=== PATIENT | male | born 1965 | race Caucasian/White ===

== ENCOUNTER 2018-03-12 14:25 | Inpatient (IN) | payer BC, OTHER ==
[~2018-03-12] VITALS: Ht 175.3 cm; Wt 87.0 kg
[2018-03-12] MEDS ORDERED: SODIUM CHLORIDE 0.9% 1000ML 1,000 ML IV STA (14:39)
[2018-03-12] MEDS ORDERED: MoRPHine SULFATE 4 MG/ML 1 ML CARP\\VIAL IV STA (14:42)
[2018-03-12] MEDS ORDERED: ONDANSETRON INJ 2 MG/ML 2 ML VIAL IV STA (14:42)
--- NOTE | 2018-03-12 15:06 | EMERGENCY ROOM VISIT NOTE ---
History First contact with patient: 14:33 Chief Complaint: CONSTIPATION Stated Complaint: CONSTIPATED, VOMITING, EXTREME PAIN History of Present Illness The patient is a 52 year old male who presents to the Emergency Room via private vehicle accompanied by with complaints of "constipated, vomiting, extreme pain". The patient states that he has not had a bowel movement in at least 8 days. This past Monday and Monday he went to [facility] emergency department where he notes that he had a CT scan of the abdomen and pelvis as well as 3 enemas. He is also been trying MiraLAX without relief. He has never had this before. He now notes abdominal distention, and his vomiting began Monday. His overall pain is a 10/10. He now has hiccups. He cannot tolerate anything p.o. since Monday. He denies any underlying medical problems , diabetes. Review of Systems A complete 10-point Review of Systems was discussed with the patient, with pertinent positives and negatives listed in the History of Present Illness. All remaining Review of Systems questions can be considered negative unless otherwise specified. Past Medical/Surgical History No pertinent Family History No pertinent Social History Smoking Status: Never Smoker Patient lives locally. Current/Historical Medications Scheduled Methotrexate (Methotrexate), 15 MG PO WK Physical Exam Vital Signs Date Time Temp Pulse Resp B/P (MAP) Pulse Ox O2 Delivery O2 Flow Rate FiO2 03/12/18 17:13 86 03/12/18 16:32 91 19 127/93 98 Room Air 03/12/18 15:00 94 24 135/99 94 Room Air 03/12/18 14:59 Room Air 03/12/18 14:44 87 03/12/18 14:29 36.5 120 18 145/95 96 Room Air Physical Exam VITAL SIGNS - Vital signs and nursing notes were reviewed. Stable. Tachycardic at 120 bpm. GENERAL -52-year-old male appearing his stated age who is in no acute distress but does appear to be in pain. Communicates well with provider and answers questions appropriately. SKIN - Without rashes. HEAD - NC/AT. EYES - PERRL with EOMI bilaterally. Sclera anicteric. EARS - No deformities of external structures noted on gross examination bilaterally. NOSE - Midline and without cyanosis. No epistaxis or purulent drainage noted. MOUTH/OROPHARYNX - Without perioral cyanosis. NECK - Neck with FROM. Supple to palpation. LUNGS - Chest wall symmetric without accessory muscle use, intercostals retractions, or central cyanosis. Normal vesicular breath sounds CTA B/L. No wheezes, rales, or rhonchi appreciated. CARDIAC - RRR with S1/S2. No murmur, rubs, or gallops appreciated. ABDOMEN - Abdominal contour enlarged/distended without pulsations or visible masses. BS diminished all four quadrants.Diffuse tenderness noted. EXTREMITIES - No clubbing or peripheral cyanosis. No pretibial edema present. + 5/5 strength noted in UE/LE bilaterally. NEUROLOGIC - Cranial nerves II through XII grossly intact. Sensory intact to light touch throughout. PSYCH - A&Ox3 and cooperates fully with examiner. Pt is very pleasant but does appear to be in pain and interacts well with examiner. RECTAL: unremarkable. No stool. Medical Decision & Procedures ER Provider Diagnostic Interpretation: ABDOMEN 2VIEW W/PA CHEST RTN CLINICAL HISTORY: 8 days of no BM, solid abdomen, emesis, hiccups COMPARISON STUDY: No previous studies for comparison. FINDINGS: The erect chest reveals low lung volumes and hypoventilatory changes the lung bases. Erect and supine views the abdomen reveal gaseous distention of the colon. The cecum measures 15 cm in diameter. There are colonic air-fluid levels. There is a paucity of gas within the rectosigmoid. The findings are suspicious for a left colonic obstruction. IMPRESSION: 1. Dilated colon with multiple air-fluid levels. Paucity of gas within the distal descending colon, rectum and sigmoid. 2. The findings are viewed as suspicious for a left colonic obstruction. Electronically signed by: German Michael M.D. 03/12/2018 4:00 PM A[address]OMEN AND PELVIS CT WITH IV CONTRAST CT DOSE: 484.13 mGy.cm HISTORY: Generalized abdominal pain. Distention. TECHNIQUE: Multiaxial CT images of the abdomen and pelvis were performed following the use of intravenous contrast. A dose lowering technique was utilized adhering to the principles of ALARA. COMPARISON STUDY: None. FINDINGS: Bibasilar densities favor subsegmental atelectasis. No pneumoperitoneum. No suspicious lytic or blastic osseous lesions. Old, healed left-sided rib fractures. No hepatic or splenic lesions. Small amount of ascites. The pancreas and adrenal glands are unremarkable. A 9 mm indeterminate exophytic hypodense lesion within the left kidney. No hydronephrosis. The bladder is unremarkable. Focal transition point at the rectosigmoid junction best seen on image 418. This measures 3 cm in length and is highly suspicious for a colonic mass. There are few mildly enlarged pericolonic lymph nodes which measure up to 1 cm. These are concerning for metastatic disease. The large and small bowel proximal to this area of stricture are distended and fluid-filled consistent with a large bowel obstruction. There is pericolonic fluid most pronounced within the right side of the colon. The cecum is distended up to 12 cm. Normal appendix. Multiple small bubbles of gas adjacent to the posterior wall of the cecum and ascending colon. This favors trapped gas. Pneumatosis could also have a similar appearance but is considered less likely. Questionable mild thickening versus under distention within the distal descending colon. Small fat-containing umbilical hernia. Questionable nodularity within the right omentum on image 196. This may be due to the edema rather than soft tissue nodularity. IMPRESSION: 1. A 3 cm focal area of bowel wall thickening at the rectosigmoid junction which is highly suspicious for a colonic mass. This results in the large bowel obstruction. There are few mildly enlarged pericolonic lymph nodes concerning for metastatic disease. 2. Multiple small bubbles of gas adjacent to the posterior wall of the cecum and ascending colon. This favors trapped gas. Pneumatosis could also have a similar appearance but is considered less likely. Clinical correlation recommended. 3. Questionable nodularity within the right omentum on image 196. This may be due to the edema from the large bowel obstruction rather than soft tissue nodularity. However, in conjunction with the small amount of ascites, the possibility of peritoneal carcinomatosis cannot be excluded. This requires follow-up to ensure resolution. 4. Additional findings as described above. 5. These findings were discussed with Dr. Blue Jauregui at 5:10 PM on 03/12/2018. Electronically signed by: Tavo Haile M.D. 03/12/2018 5:14 PM Dictated Date/Time: 03/12/2018 5:01 PM Laboratory Results 03/12/18 14:57 Red Blood Count 4.75, Mean Corpuscular Volume 90.7, Mean Corpuscular Hemoglobin 32.2, Mean Corpuscular Hemoglobin Concent 35.5, Mean Platelet Volume 9.3, Neutrophils (%) (Auto) 74.2, Lymphocytes (%) (Auto) 7.4, Monocytes (%) (Auto) 18.1, Eosinophils (%) (Auto) 0.0, Basophils (%) (Auto) 0.0, Neutrophils # (Auto ) 5.48, Lymphocytes # (Auto) 0.55, Monocytes # (Auto) 1.34, Eosinophils # (Auto ) 0.00, Basophils # (Auto) 0.00 03/12/18 14:57 Test 03/12/18 00:00 03/12/18 14:57 Urine Color DK YELLOW Urine Appearance CLEAR (CLEAR) Urine pH 5.5 (4.5-7.5) Urine Specific [place] 1.039 (1.000-1.030) Urine Protein 1+ (NEG) Urine Glucose (UA) NEG (NEG) Urine Ketones TRACE (NEG) Urine Occult Blood NEG (NEG) Urine Nitrite POS (NEG) Urine Bilirubin NEG (NEG) Urine Urobilinogen NEG (NEG) Urine Leukocyte Esterase NEG (NEG) Urine WBC (Auto) 1-5 /hpf (0-5) Urine RBC (Auto) 0-4 /hpf (0-4) Urine Hyaline Casts (Auto) 1-5 /lpf (0-5) Urine Epithelial Cells (Auto) 10-20 /lpf (0-5) Urine Bacteria (Auto) NEG (NEG) White Blood Count 7.39 K/uL (4.8-10.8) Red Blood Count 4.75 M/uL (4.7-6.1) Hemoglobin 15.3 g/dL (14.0-18.0) Hematocrit 43.1 % (42-52) Mean Corpuscular Volume 90.7 fL (80-100) Mean Corpuscular Hemoglobin 32.2 pg (25-34) Mean Corpuscular Hemoglobin Concent 35.5 g/dl (32-36) Platelet Count 280 K/uL (130-400) Mean Platelet Volume 9.3 fL (7.4-10.4) Neutrophils (%) (Auto) 74.2 % Lymphocytes (%) (Auto) 7.4 % Monocytes (%) (Auto) 18.1 % Eosinophils (%) (Auto) 0.0 % Basophils (%) (Auto) 0.0 % Neutrophils # (Auto) 5.48 K/uL (1.4-6.5) Lymphocytes # (Auto) 0.55 K/uL (1.2-3.4) Monocytes # (Auto) 1.34 K/uL (0.11-0.59) Eosinophils # (Auto) 0.00 K/uL (0-0.5) Basophils # (Auto) 0.00 K/uL (0-0.2) RDW Standard Deviation 44.4 fL (36.4-46.3) RDW Coefficient of Variation 13.5 % (11.5-14.5) Immature Granulocyte % (Auto) 0.3 % Immature Granulocyte # (Auto) 0.02 K/uL (0.00-0.02) Prothrombin Time 10.3 SECONDS (9.0-12.0) Prothromb Time International Ratio 1.0 (0.9-1.1) Activated Partial Thromboplast Time 23.4 SECONDS (21.0-31.0) Partial Thromboplastin Ratio 0.9 Anion Gap 6.0 mmol/L (3-11) Est Creatinine Clear Calc Drug Dose 108.0 ml/min Estimated GFR () 114.7 Estimated GFR (Non- 99.0 BUN/Creatinine Ratio 21.6 (10-20) Calcium Level 8.8 mg/dl (8.5-10.1) Magnesium Level 2.2 mg/dl (1.8-2.4) Total Bilirubin 0.6 mg/dl (0.2-1) Aspartate Amino Transf (AST/SGOT) 21 U/L (15-37) Alanine Aminotransferase (ALT/SGPT) 29 U/L (12-78) Alkaline Phosphatase 107 U/L (45-117) Total Protein 7.3 gm/dl (6.4-8.2) Albumin 3.6 gm/dl (3.4-5.0) Globulin 3.7 gm/dl (2.5-4.0) Albumin/Globulin Ratio 1.0 (0.9-2) Medications Administered Medications (Trade) Dose Ordered Sig/Bryant Route Start Time Stop Time Status Last Admin Dose Admin Sodium Chloride 1,000 ml @ 999 mls/hr Q1H1M STAT IV 03/12/18 14:39 03/12/18 15:39 DC 03/12/18 14:57 999 MLS/HR Morphine Sulfate (MoRPHine SULFATE INJ) 4 mg NOW STAT IV 03/12/18 14:42 4/23/18 14:43 DC 03/12/18 14:58 4 MG Ondansetron HCl (Zofran Inj) 4 mg NOW STAT IV 03/12/18 14:42 03/12/18 14:43 DC 03/12/18 14:58 4 MG Medical Decision Patient was seen and evaluated as above in room C01. Review was performed of nursing notes and vital signs. After obtaining a thorough history and physical examination the above work up was performed. CT scan of ABD/Pelvis was reviewed from [facility], performed on 03/10 at 0554. This revealed "Very large amount of retained colonic and rectal stool. No associated bowel obstruction. Findings likely represent the source of patient's symptoms". He noted he underwent three enemas yesterday without bowel movement and has not been eating since Monday secondary to the emesis. He has tried Miralax but vomits. He has numerous hiccups. CBC reveals no concerning leukocytosis or anemia. No concerning metabolic abnormality. Chest and abdominal series x-rays were performed. Concerning for bowel obstruction. Rectal exam there was no stool. No evidence of fecal impaction. He was given morphine and Zofran. He was given fluids. I did discuss this with on-call general surgery, Dr. Jauregui. Recommendation was to obtain a CT scan of the patient's abdomen and pelvis with IV contrast. Oral contrast would be ideal however the patient notes that he will not be able to tolerate this as he has not been able tolerate anything p.o. since Monday. This revealed unfortunately concern for colonic mass. This was discussed with the patient. He will be admitted by the surgery team with consult placed to GI as well. Please refer to for the documentation regarding his stay. CBC reveals no concerning leukocytosis or anemia. Urine does reveal nitrites. Case was discussed with the attending physician. I attest that I have personally reviewed the patient medication list. I attest that I have reviewed the patient's blood pressure and it was found to be elevated likely secondary to prevention. In the evaluation and treatment of this patient the following differential diagnoses were entertained: bowel obstruction, diverticulitis, fecal impaction, among others. Impression Primary Impression: Bowel obstruction Additional Impression: Hypokalemia Departure Information Dispostion Admitted as an inpatient Condition FAIR Referrals Von Abbott M.D. (PCP) Patient Instructions My [facility] Problem Qualifiers
[2018-03-12 15:08] LABS: HEMATOCRIT 43.1 % (42-52); HEMOGLOBIN 15.3 g/dL (14.0-18.0); IG# 0.02 K/uL (0.00-0.02); LYMPH % 7.4 %; LYMPH ABS # 0.55 K/uL (1.2-3.4); MEAN CELL VOLUME 90.7 fL (80-100); MEAN CORPUSCULAR HEMOGLOBIN 32.2 pg (25-34); MEAN CORPUSCULAR HGB CONC 35.5 g/dl (32-36); MEAN PLATELET VOLUME 9.3 fL (7.4-10.4); MONO % 18.1 %; MONO ABS # 1.34 K/uL (0.11-0.59); NEUT % 74.2 %; NEUT ABS # 5.48 K/uL (1.4-6.5); PLATELET COUNT 280 K/uL (130-400); RED CELL DISTRIBUTION WIDTH CV 13.5 % (11.5-14.5); RED CELL DISTRIBUTION WIDTH SD 44.4 fL (36.4-46.3); WHITE BLOOD COUNT 7.39 K/uL (4.8-10.8)
[2018-03-12] MEDS ORDERED: METH2.5T PO (15:12)
[2018-03-12 15:17] LABS: PTT PATIENT 23.4 SECONDS (21.0-31.0)
[2018-03-12 15:35] LABS: CREATININE 0.86 mg/dl (0.60-1.40)
[2018-03-12 15:36] LABS: ALBUMIN 3.6 gm/dl (3.4-5.0); CALCIUM 8.8 mg/dl (8.5-10.1); POTASSIUM 3.2 mmol/L (3.5-5.1)
[2018-03-12 15:38] LABS: TOTAL PROTEIN 7.3 gm/dl (6.4-8.2)
--- NOTE | 2018-03-12 16:01 | DIAGNOSTIC IMAGING REPORT ---
ABDOMEN 2VIEW W/PA CHEST RTN CLINICAL HISTORY: 8 days of no BM, solid abdomen, emesis, hiccups COMPARISON STUDY: No previous studies for comparison. FINDINGS: The erect chest reveals low lung volumes and hypoventilatory changes the lung bases. Erect and supine views the abdomen reveal gaseous distention of the colon. The cecum measures 15 cm in diameter. There are colonic air-fluid levels. There is a paucity of gas within the rectosigmoid. The findings are suspicious for a left colonic obstruction. IMPRESSION: 1. Dilated colon with multiple air-fluid levels. Paucity of gas within the distal descending colon, rectum and sigmoid. 2. The findings are viewed as suspicious for a left colonic obstruction. Electronically signed by: German Michael M.D. 03/12/2018 4:00 PM Dictated Date/Time: 03/12/2018 3:57 PM
[2018-03-12] MEDS ORDERED: OPTIRAY 320 IV PRN (16:45)
--- NOTE | 2018-03-12 16:48 | EMERGENCY ROOM VISIT NOTE ---
ED Visit Note First contact with patient: 14:33 I did evaluate and examine this patient myself. I did guide management for the patient. I agree with the PA's assessment as discussed. Please see the PAs dictation for further details. I did independently review the x-rays and blood work. The patient has what appears to be a large bowel obstruction. He has a tympanitic, hard and distended abdomen. Surgery was consulted.
--- NOTE | 2018-03-12 17:15 | DIAGNOSTIC IMAGING REPORT ---
ABDOMEN AND PELVIS CT WITH IV CONTRAST CT DOSE: 484.13 mGy.cm HISTORY: Generalized abdominal pain. Distention. TECHNIQUE: Multiaxial CT images of the abdomen and pelvis were performed following the use of intravenous contrast. A dose lowering technique was utilized adhering to the principles of ALARA. COMPARISON STUDY: None. FINDINGS: Bibasilar densities favor subsegmental atelectasis. No pneumoperitoneum. No suspicious lytic or blastic osseous lesions. Old, healed left-sided rib fractures. No hepatic or splenic lesions. Small amount of ascites. The pancreas and adrenal glands are unremarkable. A 9 mm indeterminate exophytic hypodense lesion within the left kidney. No hydronephrosis. The bladder is unremarkable. Focal transition point at the rectosigmoid junction best seen on image 418. This measures 3 cm in length and is highly suspicious for a colonic mass. There are few mildly enlarged pericolonic lymph nodes which measure up to 1 cm. These are concerning for metastatic disease. The large and small bowel proximal to this area of stricture are distended and fluid-filled consistent with a large bowel obstruction. There is pericolonic fluid most pronounced within the right side of the colon. The cecum is distended up to 12 cm. Normal appendix. Multiple small bubbles of gas adjacent to the posterior wall of the cecum and ascending colon. This favors trapped gas. Pneumatosis could also have a similar appearance but is considered less likely. Questionable mild thickening versus under distention within the distal descending colon. Small fat-containing umbilical hernia. Questionable nodularity within the right omentum on image 196. This may be due to the edema rather than soft tissue nodularity. IMPRESSION: 1. A 3 cm focal area of bowel wall thickening at the rectosigmoid junction which is highly suspicious for a colonic mass. This results in the large bowel obstruction. There are few mildly enlarged pericolonic lymph nodes concerning for metastatic disease. 2. Multiple small bubbles of gas adjacent to the posterior wall of the cecum and ascending colon. This favors trapped gas. Pneumatosis could also have a similar appearance but is considered less likely. Clinical correlation recommended. 3. Questionable nodularity within the right omentum on image 196. This may be due to the edema from the large bowel obstruction rather than soft tissue nodularity. However, in conjunction with the small amount of ascites, the possibility of peritoneal carcinomatosis cannot be excluded. This requires follow-up to ensure resolution. 4. Additional findings as described above. 5. These findings were discussed with Dr. Blue Jauregui at 5:10 PM on 03/12/2018. Electronically signed by: Tavo Haile M.D. 03/12/2018 5:14 PM Dictated Date/Time: 03/12/2018 5:01 PM
--- NOTE | 2018-03-12 17:29 | Gastrointestinal Consultation ---
Gastrointestinal Consultation Date of Consultation: Mar 12, 2018 Attending Physician: Blue Jauregui Consulting Physician: Perez Dang Reason for Consultation: Colonic distension ? obstruction History of Present Illness Patient is a 52 year old male who presented to ED w c/o n/v, abd pain, constipation. Went to [facility] ED 03/10 w similar complaints. Had CT abd/pelvis w showed colon fecal retention and advised to take Miralax and also given multiple enemas w/o BM. He hasn't had a BM x 8 days now and noticed abd getting more distended and not able to pass flatus. He is having hiccups now. Abd xray in ED consistent w L sided colonic obstruction w cecum of 15cm. CT abd/pelvis obtained, final read pending. His labs showed normal CBC, coags, CMP except K 3.2. Surgery team already consulted. Pt denies any hx of chronic constipation, IBD or cancers. He never had any hx of colonoscopy for colon ca screening either. Past Medical/Surgical History Past Medical History: Rheumatoid arthritis Past Surgical History: R knee cartilage removal Social History Smoking Status: Never Smoker Alcohol Use: occasionally Drug Use: none Marital Status: Housing Status: lives with family Allergies Coded Allergies: No Known Allergies (Unverified , 03/12/18) Current Medications Home Meds and Scripts Medications Dose Route/Sig Max Daily Dose Days Date Category Methotrexate 2.5 Mg Tab 15 Mg PO WK 03/12/18 Reported Review of Systems Constitutional: No fever, No chills Respiratory: No cough, No shortness of breath Cardiac: No chest pain Abdomen: + see HPI, + pain, + nausea, + vomiting, + constipation, No GI bleeding Physical Exam Date Time Temp Pulse Resp B/P (MAP) Pulse Ox O2 Delivery O2 Flow Rate FiO2 03/12/18 16:32 91 19 127/93 98 Room Air 03/12/18 15:00 94 24 135/99 94 Room Air 03/12/18 14:59 Room Air 03/12/18 14:44 87 03/12/18 14:29 36.5 120 18 145/95 96 Room Air General Appearance: + mild distress Eyes: normal inspection, PERRL, EOMI Neck: supple, no JVD Respiratory/Chest: normal breath sounds, no respiratory distress, no accessory muscle use Cardiovascular: regular rate, rhythm, no gallop, no murmur Abdomen: + abnormal bowel sounds (tympanic on percussion), + distended, + tenderness Extremities: normal inspection, no pedal edema, no calf tenderness Neurologic/Psych: alert, normal mood/affect, oriented x 3 Skin: normal color, no jaundice, no rash Laboratory Results Last 24 Hours Test 03/12/18 00:00 03/12/18 14:57 Urine Color DK YELLOW Urine Appearance CLEAR Urine pH 5.5 Urine Specific [place] 1.039 Urine Protein 1+ Urine Glucose (UA) NEG Urine Ketones TRACE Urine Occult Blood NEG Urine Nitrite POS Urine Bilirubin NEG Urine Urobilinogen NEG Urine Leukocyte Esterase NEG Urine WBC (Auto) 1-5 /hpf Urine RBC (Auto) 0-4 /hpf Urine Hyaline Casts (Auto) 1-5 /lpf Urine Epithelial Cells (Auto) 10-20 /lpf Urine Bacteria (Auto) NEG White Blood Count 7.39 K/uL Red Blood Count 4.75 M/uL Hemoglobin 15.3 g/dL Hematocrit 43.1 % Mean Corpuscular Volume 90.7 fL Mean Corpuscular Hemoglobin 32.2 pg Mean Corpuscular Hemoglobin Concent 35.5 g/dl Platelet Count 280 K/uL Mean Platelet Volume 9.3 fL Neutrophils (%) (Auto) 74.2 % Lymphocytes (%) (Auto) 7.4 % Monocytes (%) (Auto) 18.1 % Eosinophils (%) (Auto) 0.0 % Basophils (%) (Auto) 0.0 % Neutrophils # (Auto) 5.48 K/uL Lymphocytes # (Auto) 0.55 K/uL Monocytes # (Auto) 1.34 K/uL Eosinophils # (Auto) 0.00 K/uL Basophils # (Auto) 0.00 K/uL RDW Standard Deviation 44.4 fL RDW Coefficient of Variation 13.5 % Immature Granulocyte % (Auto) 0.3 % Immature Granulocyte # (Auto) 0.02 K/uL Prothrombin Time 10.3 SECONDS Prothromb Time International Ratio 1.0 Activated Partial Thromboplast Time 23.4 SECONDS Partial Thromboplastin Ratio 0.9 Sodium Level 135 mmol/L Potassium Level 3.2 mmol/L Chloride Level 102 mmol/L Carbon Dioxide Level 27 mmol/L Anion Gap 6.0 mmol/L Blood Urea Nitrogen 18 mg/dl Creatinine 0.86 mg/dl Est Creatinine Clear Calc Drug Dose 108.0 ml/min Estimated GFR () 114.7 Estimated GFR (Non- 99.0 BUN/Creatinine Ratio 21.6 Random Glucose 145 mg/dl Calcium Level 8.8 mg/dl Magnesium Level 2.2 mg/dl Total Bilirubin 0.6 mg/dl Aspartate Amino Transf (AST/SGOT) 21 U/L Alanine Aminotransferase (ALT/SGPT) 29 U/L Alkaline Phosphatase 107 U/L Total Protein 7.3 gm/dl Albumin 3.6 gm/dl Globulin 3.7 gm/dl Albumin/Globulin Ratio 1.0 Impression Patient is a 52 year old male who presented w abd distension, pain, n/v, no BM x 8 days. Imaging studies consistent w colonic distension w L sided obstruction. Final read of CT scan pending. Plan - Surgery following, appreciate recs - Keep NPO for possible colonic decompression by Dr. Dang today - NGT to LIS. - Further recs after evaluation by Dr. Dang - Correct K Addendum CT scan results: Bibasilar densities favor subsegmental atelectasis. No pneumoperitoneum. No suspicious lytic or blastic osseous lesions. Old, healed left-sided rib fractures. No hepatic or splenic lesions. Small amount of ascites. The pancreas and adrenal glands are unremarkable. A 9 mm indeterminate exophytic hypodense lesion within the left kidney. No hydronephrosis. The bladder is unremarkable. Focal transition point at the rectosigmoid junction best seen on image 418. This measures 3 cm in length and is highly suspicious for a colonic mass. There are few mildly enlarged pericolonic lymph nodes which measure up to 1 cm. These are concerning for metastatic disease. The large and small bowel proximal to this area of stricture are distended and fluid-filled consistent with a large bowel obstruction. There is pericolonic fluid most pronounced within the right side of the colon. The cecum is distended up to 12 cm. Normal appendix. Multiple small bubbles of gas adjacent to the posterior wall of the cecum and ascending colon. This favors trapped gas. Pneumatosis could also have a similar appearance but is considered less likely. Questionable mild thickening versus under distention within the distal descending colon. Small fat-containing umbilical hernia. Questionable nodularity within the right omentum on image 196. This may be due to the edema rather than soft tissue nodularity. Attg add: I interviewed and examined pt, reviewed chart and labs. Pt with no sig PMH admit with 8 d h/o constipation, abd distention. No prior h/o constipation. On exam, he is mildly uncomfortable. Abd is distended, but without focal tenderness. Oral mucosa mildly dry. CT shows rectosigmoid narrowing; there is marked cecal distention, a small amt of pericolonic fluid on the right side. Large bowel obstruction - He has no focal tenderness or leukocytosis; however, I am concerned about the marked dilation of the cecum, as well as the pericolonic fluid. Will attempt decompression tonite.
[2018-03-12] MEDS ORDERED: ONDANSETRON INJ 2 MG/ML 2 ML VIAL IV PRN ×2 (19:00→20:45)
[2018-03-12] MEDS ORDERED: MoRPHine SULFATE 4 MG/ML 1 ML CARP\\VIAL IV PRN (19:00)
--- NOTE | 2018-03-12 19:08 | History and Physical ---
History & Physical Date & Time of Service: Mar 12, 2018 at 18:59 Chief Complaint: Constipated, Vomiting, Extreme Pain Primary Care Physician: Von Abbott M.D. History of Present Illness Source: patient, family This is a 52-year-old male who presented to the emergency room with a complaint of not having had a bowel movement for about 8 days. He had some lower abdominal discomfort that began about 2 days ago. He had some nausea and vomiting over that same period of time but no hematemesis. The vomiting was mostly for dry heaves and that he was not able to keep anything but small bits of water down. He has never had an issue like this before. Prior to 8 days ago his bowels are moving regularly with formed stool. There is no decrease in the caliber. He denied melena and hematochezia. He has never had a colonoscopy. There is no family history of colon cancer. He has not had any weight loss. He underwent a CT scan 2 days ago that was felt to demonstrate a large amount of formed stool in the rectum and distal sigmoid colon. He underwent enemas for evacuation but that still did not result in passing flatus or a bowel movement. He underwent a CT scan today that demonstrated a narrowing near the rectosigmoid junction beginning at the sacral prominence and extending down through the sacral hollow. There were some enlarged lymph nodes as well. Past Medical/Surgical History PMH: Rheumatoid arthritis PSH: Knee arthroscopy Social History Smoking Status: Never Smoker Smokeless Tobacco Use: No Alcohol Use: Occasional Drug Use: none Marital Status: Allergies Coded Allergies: No Known Allergies (Unverified , 03/12/18) Home Medications Scheduled Methotrexate (Methotrexate), 15 MG PO WK Review of Systems Constitutional: No fever, No chills Respiratory: No cough, No sputum Cardiovascular: No chest pain Abdomen: + problem reported (as per HPI) Genitourinary - Male: No hematuria, No dysuria Endocrine: No fatigue Integumentary: No rash Physical Exam Vital Signs Date Time Temp Pulse Resp B/P (MAP) Pulse Ox O2 Delivery O2 Flow Rate FiO2 03/12/18 17:13 86 03/12/18 16:32 91 19 127/93 98 Room Air 03/12/18 15:00 94 24 135/99 94 Room Air 03/12/18 14:59 Room Air 4/23/18 14:44 87 03/12/18 14:29 36.5 120 18 145/95 96 Room Air General Appearance: WD/WN Head: normocephalic Neck: supple, no adenopathy Respiratory/Chest: chest non-tender, lungs clear Cardiovascular: regular rate, rhythm Abdomen/GI: + tenderness (mild throughout), + abnormal bowel sounds (normal pitch but decreased), + distended Back: normal inspection, no CVA tenderness Skin: normal color Lymphatic: no adenopathy Diagnostics Laboratory Results Results Past 24 Hours Test 03/12/18 00:00 03/12/18 14:57 Range/Units Urine Color DK YELLOW Urine Appearance CLEAR CLEAR Urine pH 5.5 4.5-7.5 Urine Specific [place] 1.039 1.000-1.030 Urine Protein 1+ NEG Urine Glucose (UA) NEG NEG Urine Ketones TRACE NEG Urine Occult Blood NEG NEG Urine Nitrite POS NEG Urine Bilirubin NEG NEG Urine Urobilinogen NEG NEG Urine Leukocyte Esterase NEG NEG Urine WBC (Auto) 1-5 0-5 /hpf Urine RBC (Auto) 0-4 0-4 /hpf Urine Hyaline Casts (Auto) 1-5 0-5 /lpf Urine Epithelial Cells (Auto) 10-20 0-5 /lpf Urine Bacteria (Auto) NEG NEG White Blood Count 7.39 4.8-10.8 K/uL Red Blood Count 4.75 4.7-6.1 M/uL Hemoglobin 15.3 14.0-18.0 g/dL Hematocrit 43.1 42-52 % Mean Corpuscular Volume 90.7 80-100 fL Mean Corpuscular Hemoglobin 32.2 25-34 pg Mean Corpuscular Hemoglobin Concent 35.5 32-36 g/dl Platelet Count 280 130-400 K/uL Mean Platelet Volume 9.3 7.4-10.4 fL Neutrophils (%) (Auto) 74.2 % Lymphocytes (%) (Auto) 7.4 % Monocytes (%) (Auto) 18.1 % Eosinophils (%) (Auto) 0.0 % Basophils (%) (Auto) 0.0 % Neutrophils # (Auto) 5.48 1.4-6.5 K/uL Lymphocytes # (Auto) 0.55 1.2-3.4 K/uL Monocytes # (Auto) 1.34 0.11-0.59 K/uL Eosinophils # (Auto) 0.00 0-0.5 K/uL Basophils # (Auto) 0.00 0-0.2 K/uL RDW Standard Deviation 44.4 36.4-46.3 fL RDW Coefficient of Variation 13.5 11.5-14.5 % Immature Granulocyte % (Auto) 0.3 % Immature Granulocyte # (Auto) 0.02 0.00-0.02 K/uL Prothrombin Time 10.3 9.0-12.0 SECONDS Prothromb Time International Ratio 1.0 0.9-1.1 Activated Partial Thromboplast Time 23.4 21.0-31.0 SECONDS Partial Thromboplastin Ratio 0.9 Sodium Level 135 136-145 mmol/L Potassium Level 3.2 3.5-5.1 mmol/L Chloride Level 102 98-107 mmol/L Carbon Dioxide Level 27 21-32 mmol/L Anion Gap 6.0 3-11 mmol/L Blood Urea Nitrogen 18 7-18 mg/dl Creatinine 0.86 0.60-1.40 mg/dl Est Creatinine Clear Calc Drug Dose 108.0 ml/min Estimated GFR () 114.7 Estimated GFR (Non- 99.0 BUN/Creatinine Ratio 21.6 10-20 Random Glucose 145 70-99 mg/dl Calcium Level 8.8 8.5-10.1 mg/dl Magnesium Level 2.2 1.8-2.4 mg/dl Total Bilirubin 0.6 0.2-1 mg/dl Aspartate Amino Transf (AST/SGOT) 21 15-37 U/L Alanine Aminotransferase (ALT/SGPT) 29 12-78 U/L Alkaline Phosphatase 107 45-117 U/L Total Protein 7.3 6.4-8.2 gm/dl Albumin 3.6 3.4-5.0 gm/dl Globulin 3.7 2.5-4.0 gm/dl Albumin/Globulin Ratio 1.0 0.9-2 Diagnostic Radiology ABDOMEN 2VIEW W/PA CHEST RTN CLINICAL HISTORY: 8 days of no BM, solid abdomen, emesis, hiccups COMPARISON STUDY: No previous studies for comparison. FINDINGS: The erect chest reveals low lung volumes and hypoventilatory changes the lung bases. Erect and supine views the abdomen reveal gaseous distention of the colon. The cecum measures 15 cm in diameter. There are colonic air-fluid levels. There is a paucity of gas within the rectosigmoid. The findings are suspicious for a left colonic obstruction. IMPRESSION: 1. Dilated colon with multiple air-fluid levels. Paucity of gas within the distal descending colon, rectum and sigmoid. 2. The findings are viewed as suspicious for a left colonic obstruction. ABDOMEN AND PELVIS CT WITH IV CONTRAST CT DOSE: 484.13 mGy.cm HISTORY: Generalized abdominal pain. Distention. TECHNIQUE: Multiaxial CT images of the abdomen and pelvis were performed following the use of intravenous contrast. A dose lowering technique was utilized adhering to the principles of ALARA. COMPARISON STUDY: None. FINDINGS: Bibasilar densities favor subsegmental atelectasis. No pneumoperitoneum. No suspicious lytic or blastic osseous lesions. Old, healed left-sided rib fractures. No hepatic or splenic lesions. Small amount of ascites. The pancreas and adrenal glands are unremarkable. A 9 mm indeterminate exophytic hypodense lesion within the left kidney. No hydronephrosis. The bladder is unremarkable. Focal transition point at the rectosigmoid junction best seen on image 418. This measures 3 cm in length and is highly suspicious for a colonic mass. There are few mildly enlarged pericolonic lymph nodes which measure up to 1 cm. These are concerning for metastatic disease. The large and small bowel proximal to this area of stricture are distended and fluid-filled consistent with a large bowel obstruction. There is pericolonic fluid most pronounced within the right side of the colon. The cecum is distended up to 12 cm. Normal appendix. Multiple small bubbles of gas adjacent to the posterior wall of the cecum and ascending colon. This favors trapped gas. Pneumatosis could also have a similar appearance but is considered less likely. Questionable mild thickening versus under distention within the distal descending colon. Small fat-containing umbilical hernia. Questionable nodularity within the right omentum on image 196. This may be due to the edema rather than soft tissue nodularity. IMPRESSION: 1. A 3 cm focal area of bowel wall thickening at the rectosigmoid junction which is highly suspicious for a colonic mass. This results in the large bowel obstruction. There are few mildly enlarged pericolonic lymph nodes concerning for metastatic disease. 2. Multiple small bubbles of gas adjacent to the posterior wall of the cecum and ascending colon. This favors trapped gas. Pneumatosis could also have a similar appearance but is considered less likely. Clinical correlation recommended. 3. Questionable nodularity within the right omentum on image 196. This may be due to the edema from the large bowel obstruction rather than soft tissue nodularity. However, in conjunction with the small amount of ascites, the possibility of peritoneal carcinomatosis cannot be excluded. This requires follow-up to ensure resolution. 4. Additional findings as described above. 5. These findings were discussed with Dr. Blue Jauregui at 5:10 PM on 03/12/2018. Impression Assessment and Plan This patient has pericolonic narrowing most likely due to mass although benign stricture is possible but there is lymphadenopathy in the same area. There is evidence possibly of intra-abdominal carcinomatosis. He does have a small amount of ascites. This may be related to colonic distention. He has significant colonic distention. I discussed this with Dr. Dang who will see him for probable colonic decompression tonight. Will await the result. If that can be accomplished and there is evidence of malignancy then will be important to know at what distance from the anal opening. We will then need to discuss surgical intervention with him at some point. We will admit him for now. He has an NG tube which will be placed to suction. He will receive IV fluid. We will place him on antibiotics as well. Will await Dr. Dang's opinion. Resuscitation Status VTE Prophylaxis Will order VTE Prophylaxis: Yes Reason for no VTE drug order: Contraindicated
[2018-03-12 19:45] VITALS: BP 153/95; PULSE 92; TEMP 36.4; O2SAT 92; Ht 175.3 cm; Wt 87.0 kg
[2018-03-12] MEDS ORDERED: NURSING VERBAL MED ORDER ONE ×2 (20:00→22:15)
[2018-03-12] MEDS ORDERED: FENTANYL CITRATE INJ 50 MCG/1 ML 2 ML VIAL ONE ×2 (20:12→21:31)
[2018-03-12] MEDS ORDERED: MIDAZOLAM HCL 1 MG/ML 2ML VIAL ONE (20:12)
[2018-03-12] MEDS ORDERED: MINERAL OIL 30 ML UDC ONE (20:24)
[2018-03-12] MEDS ORDERED: SODIUM CHLORIDE 0.9% 1000ML 1,000 ML IV ONE (20:30)
[2018-03-12] MEDS ORDERED: ATROPINE SULFATE 0.1 MG/ML 5ML SYR IV PRN (20:45)
[2018-03-12] MEDS ORDERED: EpHEDrine SULFATE INJ 50 MG/ML AMP IV PRN (20:45)
[2018-03-12] MEDS ORDERED: SUCCINYLCHOLINE CHLORIDE 20 MG/ML 10 ML VIAL IV ONE (21:13)
[2018-03-12] MEDS ORDERED: DEXAMETHASONE SOD INJ 4 MG/ML VIAL ONE (21:13)
[2018-03-12] MEDS ORDERED: ONDANSETRON INJ 2 MG/ML 2 ML VIAL ONE (21:13)
[2018-03-12] MEDS ORDERED: PROPOFOL IV EMULSION 10 MG/ML 20 ML VIAL IV ONE (21:14)
--- NOTE | 2018-03-12 22:14 | DIAGNOSTIC IMAGING REPORT ---
KUB CLINICAL HISTORY: Colonic stricture/mass. Colonoscopy. COMPARISON STUDY: Abdomen and pelvis CT 03/12/2018. FINDINGS: Total fluoroscopy time was 4 minutes and 57 seconds. 4 fluoroscopic spot images of the pelvis were submitted. There is an endoscope seen within the rectosigmoid junction. There is a guidewire which extends into the distended sigmoid colon. This is followed by placement of a stent. There is focal narrowing of the stent at the site of stricture/mass. There is residual contrast within the bladder. IMPRESSION: Fluoroscopy provided for placement of a rectosigmoid stent. Electronically signed by: Tavo Haile M.D. 03/12/2018 10:12 PM Dictated Date/Time: 03/12/2018 10:11 PM
--- NOTE | 2018-03-12 22:20 | GI REPORT ---
Procedure Date: 03/12/2018 9:04 PM Procedure: Colonoscopy Indications: Therapeutic procedure, Follow-up of colonic obstruction Medicines: See the Anesthesia note for documentation of the administered medications Complications: No immediate complications. Estimated Blood Loss: Estimated blood loss: none. Procedure: Pre-Anesthesia Assessment: - ASA Grade Assessment: III - A patient with severe systemic disease. After I obtained informed consent, the scope was passed under direct vision. Throughout the procedure, the patient's blood pressure, pulse, and oxygen saturations were monitored continuously. The Scope was introduced through the anus with the intention of advancing to the hepatic flexure. The scope was advanced to the sigmoid colon before the procedure was aborted. Medications were given. The colonoscopy was performed without difficulty. The patient tolerated the procedure well. The quality of the bowel preparation was adequate. Findings: The perianal exam findings include non-thrombosed external hemorrhoids. An ulcerated circiumferential completely obstructing mass was found in the sigmoid colon at approximately 15 cm. The edges of the mass were biopsied. A 0.35 wire was passedunder fluoroscopic guidance across the stricture. A sphintcerotome was passed over the wire and contrast was injected. A 10 Fr 8 cm Evolution stent was placed over the stricture under fluoroscopic guidance. There was a large amount of stool passing into the rectum post stent deployment. Impression: - Non-thrombosed external hemorrhoids found on perianal exam. 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 Prosthesis placed. Recommendation: - Discharge patient to floor. Perez Dang M.D. Perez Dang MD 03/12/2018 10:20:07 PM This report has been signed electronically. Note Initiated On: 03/12/2018 9:04 PM I attest to the content of the Intraoperative Record and orders documented therein, exceptions below
[2018-03-12] MEDS ORDERED: ALBUT/IPRATROP 3MG/0.5MG NEB 3 ML VIAL INH ONE (22:45)
--- NOTE | 2018-03-12 22:54 | DIAGNOSTIC IMAGING REPORT ---
KUB HISTORY: stent placement, free air COMPARISON: Abdomen and pelvis CT 03/12/2018. FINDINGS: There is a rectosigmoid stent. The stent remains narrowed at the site of stricture. Contrast within the bladder. Distended colon and small bowel consistent with a large bowel obstruction. The cecum measures up to 14 m in diameter. No pneumatosis. No definite pneumoperitoneum on this supine study. Nasogastric tube terminates in the proximal stomach. This could be advanced by 5 cm. IMPRESSION: 1. There is a rectosigmoid stent which remains narrowed at the site of stricture. No definite pneumoperitoneum or pneumatosis on this supine study. 2. Persistent large bowel obstruction with the cecum distended up to 14 cm. 3. Nasogastric tube terminates in the proximal stomach. This could be advanced by approximately 5 cm. Electronically signed by: Tavo Haile M.D. 03/12/2018 10:52 PM Dictated Date/Time: 03/12/2018 10:50 PM
[2018-03-12 23:14] VITALS: PULSE 68; O2SAT 99
[2018-03-12 23:30] VITALS: BP 116/83; PULSE 101; TEMP 36.6; O2SAT 92
[2018-03-13] VITALS (13 sets, daily range): BP systolic 124–137; BP diastolic 80–91; PULSE 73–94; TEMP 36.7–37.2; O2SAT 92–97
[2018-03-13] MEDS ORDERED: NURSING VERBAL MED ORDER ONE
[2018-03-13] MEDS: PIPERACILL/TAZOBAC IV 3.375 GM in DEXTROSE 5% 100ML 100 ML IV SCH ×4 (00:17→23:15)
[2018-03-13] MEDS: SODIUM CHLORIDE 0.9% 1000ML 1,000 ML IV SCH ×3 (00:18→17:18)
--- NOTE | 2018-03-13 00:50 | Anesthesiology Progress Note ---
Anesthesia Post Op Note Date & Time Mar 13, 2018 at 00:47 Vital Signs Pain Intensity: 0 Vital Signs Past 12 Hours Date Time Temp Pulse Resp B/P (MAP) Pulse Ox O2 Delivery O2 Flow Rate FiO2 03/12/18 23:14 68 20 99 Mask 15.0 100 03/12/18 22:50 105 18 120/80 95 Nasal Cannula 3 03/12/18 22:40 95 12 134/89 92 Nebulizer 8 03/12/18 22:30 93 19 134/91 95 Oxymask 15 03/12/18 22:20 106 18 138/91 94 Oxymask 15 03/12/18 22:10 36.7 109 21 135/99 94 Oxymask 15 03/12/18 19:45 36.4 92 16 153/95 92 Room Air 03/12/18 19:30 36.5 100 19 128/93 97 03/12/18 19:22 100 128/93 97 Room Air 03/12/18 17:13 86 03/12/18 16:32 91 19 127/93 98 Room Air 03/12/18 15:00 94 24 135/99 94 Room Air 03/12/18 14:59 Room Air 03/12/18 14:44 87 03/12/18 14:29 36.5 120 18 145/95 96 Room Air Notes Mental Status: alert / awake / arousable, participated in evaluation Pt Amnestic to Procedure: Yes Nausea / Vomiting: adequately controlled Pain: adequately controlled Airway Patency, RR, SpO2: stable & adequate BP & HR: stable & adequate Hydration State: stable & adequate Anesthetic Complications: no major complications apparent In recovery patient weaned to NC oxygen but I did give him a nebulizer treatment as he had b/l expiratory wheezes. In the OR, I have him several puffs of albuterol via the ETT for an obstructive type waveform on EtCO2 tracing. I also felt he most like had some b/l atelectasis given his significantly distended abdomen. Intubation was done via RSI to ensure no aspiration and his NG tube was suctioned prior to intubation. In PACU, he was conversant without pain. Both myself and GI physician felt it was best to send him to telemetry for higher level nursing care.
[2018-03-13 06:15] LABS: BASO % 0.3 %; BASO ABS # 0.01 K/uL (0-0.2); HEMATOCRIT 38.6 % (42-52); HEMOGLOBIN 13.4 g/dL (14.0-18.0); IG# 0.01 K/uL (0.00-0.02); LYMPH % 16.6 %; LYMPH ABS # 0.54 K/uL (1.2-3.4); MEAN CELL VOLUME 92.8 fL (80-100); MEAN CORPUSCULAR HEMOGLOBIN 32.2 pg (25-34); MEAN CORPUSCULAR HGB CONC 34.7 g/dl (32-36); MEAN PLATELET VOLUME 9.2 fL (7.4-10.4); MONO % 38.8 %; MONO ABS # 1.26 K/uL (0.11-0.59); NEUT ABS # 1.43 K/uL (1.4-6.5); PLATELET COUNT 269 K/uL (130-400); RED CELL DISTRIBUTION WIDTH CV 13.9 % (11.5-14.5); RED CELL DISTRIBUTION WIDTH SD 46.7 fL (36.4-46.3); WHITE BLOOD COUNT 3.25 K/uL (4.8-10.8)
[2018-03-13 06:42] LABS: CALCIUM 8.2 mg/dl (8.5-10.1); CREATININE 1.03 mg/dl (0.60-1.40); POTASSIUM 3.2 mmol/L (3.5-5.1)
[2018-03-13] MEDS ORDERED: POTASSIUM CHLR 20 MEQ / WTR 20 MEQ IV STA (08:18)
[2018-03-13] MEDS: POTASSIUM CHLR 10 MEQ / WTR 100 ML IV SCH ×2 (08:59→10:45)
--- NOTE | 2018-03-13 10:15 | DIAGNOSTIC IMAGING REPORT ---
KUB CLINICAL HISTORY: bowel obstruction s/p stent COMPARISON STUDY: CT of the abdomen and pelvis and KUB March 12, 2018. FINDINGS: The tip of the nasogastric tube projects over the gastric cardia. The tube could be advanced 5 cm. A rectosigmoid stent is in place. Narrowing of the stent is likely due to the suspected rectosigmoid mass. Marked colonic distention is similar to previous KUB performed March 12, 2018 10:28 PM. Mild small bowel dilatation persists. Small amount of residual contrast within the bladder is noted from prior CT. IMPRESSION: 1. Persistent marked colonic distention consistent with a colonic obstruction. However, interval development of rectal gas distal to the rectosigmoid mass. 2. Rectosigmoid stent in place which remains narrowed at site of stricture. 3. Tip of nasogastric tube projects over the gastric cardia. The tube could be advanced 5 cm. Electronically signed by: Dillon Dial M.D. 03/13/2018 10:13 AM Dictated Date/Time: 03/13/2018 10:09 AM
--- NOTE | 2018-03-13 10:20 | Surgery Progress Note ---
Surgery Progress Note Date of Service Mar 13, 2018. Subjective Post OP Day: HD # 1 , s/p Colonic stent placement Feels less bloated than yesterday Less abdominal pain but still present Would like NGT removed and drink a glass of water some heartburn this morning some liquid stool this am Objective Vital Signs: Date Time Temp Pulse Resp B/P (MAP) Pulse Ox O2 Delivery O2 Flow Rate FiO2 03/13/18 07:44 95 Nasal Cannula 3.0 03/13/18 07:28 36.8 73 18 133/85 (101) 95 Nasal Cannula 4.0 03/13/18 04:00 37.0 81 20 131/84 (100) 95 Room Air 03/13/18 04:00 Nasal Cannula 3.0 100 03/13/18 02:30 36.8 94 18 131/91 (104) 92 Nasal Cannula 3.0 03/13/18 01:30 37.0 92 137/83 (101) 94 Nasal Cannula 3.0 03/13/18 00:30 36.7 91 18 124/81 (95) 95 Nasal Cannula 3.0 03/13/18 00:00 Nasal Cannula 3.0 100 03/13/18 00:00 36.7 91 17 124/81 (95) 95 Room Air 3.0 03/12/18 23:30 36.6 101 17 116/83 (94) 92 Nasal Cannula 3.0 03/12/18 23:14 68 20 99 Mask 15.0 100 03/12/18 22:50 105 18 120/80 95 Nasal Cannula 3 03/12/18 22:40 95 12 134/89 92 Nebulizer 8 03/12/18 22:30 93 19 134/91 95 Oxymask 15 03/12/18 22:20 106 18 138/91 94 Oxymask 15 03/12/18 22:10 36.7 109 21 135/99 94 Oxymask 15 03/12/18 19:45 36.4 92 16 153/95 92 Room Air 03/12/18 19:30 36.5 100 19 128/93 97 03/12/18 19:22 100 128/93 97 Room Air 03/12/18 17:13 86 03/12/18 16:32 91 19 127/93 98 Room Air 03/12/18 15:00 94 24 135/99 94 Room Air 03/12/18 14:59 Room Air 03/12/18 14:44 87 03/12/18 14:29 36.5 120 18 145/95 96 Room Air Physical Exam: nasogastric drainage (bilious and dark brown output) Head: normocephalic, atraumatic Neck: trachea midline Respiratory/Chest: no respiratory distress, no accessory muscle use Abdomen: + distended (moderate to severe abdominal distention, tympanic on percussion), + tenderness (generalized tenderness, no peritonitis) Laboratory Results: Results Past 24 Hours Test 03/12/18 14:57 03/13/18 05:48 Range/Units White Blood Count 7.39 3.25 4.8-10.8 K/uL Red Blood Count 4.75 4.16 4.7-6.1 M/uL Hemoglobin 15.3 13.4 14.0-18.0 g/dL Hematocrit 43.1 38.6 42-52 % Mean Corpuscular Volume 90.7 92.8 80-100 fL Mean Corpuscular Hemoglobin 32.2 32.2 25-34 pg Mean Corpuscular Hemoglobin Concent 35.5 34.7 32-36 g/dl Platelet Count 280 269 130-400 K/uL Mean Platelet Volume 9.3 9.2 7.4-10.4 fL Neutrophils (%) (Auto) 74.2 44.0 % Lymphocytes (%) (Auto) 7.4 16.6 % Monocytes (%) (Auto) 18.1 38.8 % Eosinophils (%) (Auto) 0.0 0.0 % Basophils (%) (Auto) 0.0 0.3 % Neutrophils # (Auto) 5.48 1.43 1.4-6.5 K/uL Lymphocytes # (Auto) 0.55 0.54 1.2-3.4 K/uL Monocytes # (Auto) 1.34 1.26 0.11-0.59 K/uL Eosinophils # (Auto) 0.00 0.00 0-0.5 K/uL Basophils # (Auto) 0.00 0.01 0-0.2 K/uL RDW Standard Deviation 44.4 46.7 36.4-46.3 fL RDW Coefficient of Variation 13.5 13.9 11.5-14.5 % Immature Granulocyte % (Auto) 0.3 0.3 % Immature Granulocyte # (Auto) 0.02 0.01 0.00-0.02 K/uL Prothrombin Time 10.3 9.0-12.0 SECONDS Prothromb Time International Ratio 1.0 0.9-1.1 Activated Partial Thromboplast Time 23.4 21.0-31.0 SECONDS Partial Thromboplastin Ratio 0.9 Sodium Level 135 139 136-145 mmol/L Potassium Level 3.2 3.2 3.5-5.1 mmol/L Chloride Level 102 106 98-107 mmol/L Carbon Dioxide Level 27 30 21-32 mmol/L Anion Gap 6.0 3.0 3-11 mmol/L Blood Urea Nitrogen 18 18 7-18 mg/dl Creatinine 0.86 1.03 0.60-1.40 mg/dl Est Creatinine Clear Calc Drug Dose 108.0 83.0 ml/min Estimated GFR () 114.7 95.7 Estimated GFR (Non- 99.0 82.5 BUN/Creatinine Ratio 21.6 17.2 10-20 Random Glucose 145 116 70-99 mg/dl Calcium Level 8.8 8.2 8.5-10.1 mg/dl Magnesium Level 2.2 1.8-2.4 mg/dl Total Bilirubin 0.6 0.2-1 mg/dl Aspartate Amino Transf (AST/SGOT) 21 15-37 U/L Alanine Aminotransferase (ALT/SGPT) 29 12-78 U/L Alkaline Phosphatase 107 45-117 U/L Total Protein 7.3 6.4-8.2 gm/dl Albumin 3.6 3.4-5.0 gm/dl Globulin 3.7 2.5-4.0 gm/dl Albumin/Globulin Ratio 1.0 0.9-2 Diagnostic Interpretation: KUB CLINICAL HISTORY: bowel obstruction s/p stent COMPARISON STUDY: CT of the abdomen and pelvis and KUB March 12, 2018. FINDINGS: The tip of the nasogastric tube projects over the gastric cardia. The tube could be advanced 5 cm. A rectosigmoid stent is in place. Narrowing of the stent is likely due to the suspected rectosigmoid mass. Marked colonic distention is similar to previous KUB performed March 12, 2018 10:28 PM. Mild small bowel dilatation persists. Small amount of residual contrast within the bladder is noted from prior CT. IMPRESSION: 1. Persistent marked colonic distention consistent with a colonic obstruction. However, interval development of rectal gas distal to the rectosigmoid mass. 2. Rectosigmoid stent in place which remains narrowed at site of stricture. 3. Tip of nasogastric tube projects over the gastric cardia. The tube could be advanced 5 cm. Assessment & Plan 52 year-old male presented to ED with complaint of inability to have a bowel movement for 8 days with completely obstructing rectosigmoid mass s/p colonoscopy with stent placement. Mass at 15 cm. Biopsied , results pending. Severe colonic distention with abdomen still distended and tympanic on examination, no peritonitis. No leukocytosis. KUB this am still pending. Hypokalemia, today 3.2 Plan: Continue NPO Continue NGT to LIS Continue current pain management Continue IV Fluids and IV antibiotics Continue IV Zofran as needed Addendum: KUB showing persistent colonic distention, similar to previous. NGT at Gastric Cardia, could be advanced 5 cm Advance NGT 5 cm Replace K May need further colonic decompression
--- NOTE | 2018-03-13 11:13 | Gastroenterology Progress Note ---
Progress Note Date of Service: Mar 13, 2018 Subjective Pt evaluation today including: conversation w/ patient, physical exam, chart review, lab review, review of studies, review of inpatient medication list Pt underwent colonoscopy w stent placement yesterday for colonic obstruction secondary to rectosigmoid mass. He is passing large amt of stool since then. Abd still is distended, repeat KUB w similar distension of colon and cecum up to 13cm. He has NGT in place on LIS. + hiccups. Review of Systems Constitutional: No fever Respiratory: No cough, No shortness of breath Cardiac: No chest pain Abdomen: + see HPI, + pain (better), No nausea, No vomiting Medications Current Inpatient Medications Medications (Trade) Dose Ordered Sig/Bryant Route Start Time Stop Time Status Last Admin Dose Admin Ioversol (Optiray 320) 125 ml UD PRN IV 03/12/18 16:45 03/16/18 16:44 Morphine Sulfate (MoRPHine SULFATE INJ) 4 mg Q1H PRN IV 03/12/18 19:00 03/26/18 18:59 Ondansetron HCl (Zofran Inj) 4 mg Q6H PRN IV 03/12/18 19:00 04/11/18 18:59 Piperacillin Sod/ Tazobactam Sod 3.375 gm/Dextrose 115 ml @ 28.75 mls/ hr Q8H IV 03/13/18 00:00 03/14/18 00:00 03/13/18 07:37 28.75 MLS/HR Sodium Chloride 1,000 ml @ 125 mls/hr Q8H IV 03/12/18 18:53 04/11/18 18:52 03/13/18 07:37 125 MLS/HR Objective Vital Signs Date Time Temp Pulse Resp B/P (MAP) Pulse Ox O2 Delivery O2 Flow Rate FiO2 03/13/18 07:44 95 Nasal Cannula 3.0 03/13/18 07:28 36.8 73 18 133/85 (101) 95 Nasal Cannula 4.0 03/13/18 04:00 37.0 81 20 131/84 (100) 95 Room Air 03/13/18 04:00 Nasal Cannula 3.0 100 03/13/18 02:30 36.8 94 18 131/91 (104) 92 Nasal Cannula 3.0 03/13/18 01:30 37.0 92 137/83 (101) 94 Nasal Cannula 3.0 03/13/18 00:30 36.7 91 18 124/81 (95) 95 Nasal Cannula 3.0 03/13/18 00:00 Nasal Cannula 3.0 100 03/13/18 00:00 36.7 91 17 124/81 (95) 95 Room Air 3.0 03/12/18 23:30 36.6 101 17 116/83 (94) 92 Nasal Cannula 3.0 03/12/18 23:14 68 20 99 Mask 15.0 100 03/12/18 22:50 105 18 120/80 95 Nasal Cannula 3 03/12/18 22:40 95 12 134/89 92 Nebulizer 8 03/12/18 22:30 93 19 134/91 95 Oxymask 15 03/12/18 22:20 106 18 138/91 94 Oxymask 15 03/12/18 22:10 36.7 109 21 135/99 94 Oxymask 15 03/12/18 19:45 36.4 92 16 153/95 92 Room Air 03/12/18 19:30 36.5 100 19 128/93 97 03/12/18 19:22 100 128/93 97 Room Air 03/12/18 17:13 86 03/12/18 16:32 91 19 127/93 98 Room Air 03/12/18 15:00 94 24 135/99 94 Room Air 03/12/18 14:59 Room Air 03/12/18 14:44 87 03/12/18 14:29 36.5 120 18 145/95 96 Room Air Physical Exam General Appearance: WD/WN, no apparent distress Eyes: normal inspection, PERRL, EOMI ENT: + pertinent finding (NGT to LIS) Neck: supple, no JVD, trachea midline Respiratory/Chest: normal breath sounds, no respiratory distress, no accessory muscle use Cardiovascular: regular rate, rhythm, no gallop, no murmur Abdomen: + abnormal bowel sounds, + distended, + tenderness Extremities: normal inspection, no pedal edema, no calf tenderness Neurologic/Psych: alert, normal mood/affect, oriented x 3 Skin: normal color, no jaundice, no rash Laboratory Results Last 24 Hours Test 03/12/18 14:57 03/13/18 05:48 White Blood Count 7.39 K/uL 3.25 K/uL Red Blood Count 4.75 M/uL 4.16 M/uL Hemoglobin 15.3 g/dL 13.4 g/dL Hematocrit 43.1 % 38.6 % Mean Corpuscular Volume 90.7 fL 92.8 fL Mean Corpuscular Hemoglobin 32.2 pg 32.2 pg Mean Corpuscular Hemoglobin Concent 35.5 g/dl 34.7 g/dl Platelet Count 280 K/uL 269 K/uL Mean Platelet Volume 9.3 fL 9.2 fL Neutrophils (%) (Auto) 74.2 % 44.0 % Lymphocytes (%) (Auto) 7.4 % 16.6 % Monocytes (%) (Auto) 18.1 % 38.8 % Eosinophils (%) (Auto) 0.0 % 0.0 % Basophils (%) (Auto) 0.0 % 0.3 % Neutrophils # (Auto) 5.48 K/uL 1.43 K/uL Lymphocytes # (Auto) 0.55 K/uL 0.54 K/uL Monocytes # (Auto) 1.34 K/uL 1.26 K/uL Eosinophils # (Auto) 0.00 K/uL 0.00 K/uL Basophils # (Auto) 0.00 K/uL 0.01 K/uL RDW Standard Deviation 44.4 fL 46.7 fL RDW Coefficient of Variation 13.5 % 13.9 % Immature Granulocyte % (Auto) 0.3 % 0.3 % Immature Granulocyte # (Auto) 0.02 K/uL 0.01 K/uL Prothrombin Time 10.3 SECONDS Prothromb Time International Ratio 1.0 Activated Partial Thromboplast Time 23.4 SECONDS Partial Thromboplastin Ratio 0.9 Sodium Level 135 mmol/L 139 mmol/L Potassium Level 3.2 mmol/L 3.2 mmol/L Chloride Level 102 mmol/L 106 mmol/L Carbon Dioxide Level 27 mmol/L 30 mmol/L Anion Gap 6.0 mmol/L 3.0 mmol/L Blood Urea Nitrogen 18 mg/dl 18 mg/dl Creatinine 0.86 mg/dl 1.03 mg/dl Est Creatinine Clear Calc Drug Dose 108.0 ml/min 83.0 ml/min Estimated GFR () 114.7 95.7 Estimated GFR (Non- 99.0 82.5 BUN/Creatinine Ratio 21.6 17.2 Random Glucose 145 mg/dl 116 mg/dl Calcium Level 8.8 mg/dl 8.2 mg/dl Magnesium Level 2.2 mg/dl Total Bilirubin 0.6 mg/dl Aspartate Amino Transf (AST/SGOT) 21 U/L Alanine Aminotransferase (ALT/SGPT) 29 U/L Alkaline Phosphatase 107 U/L Total Protein 7.3 gm/dl Albumin 3.6 gm/dl Globulin 3.7 gm/dl Albumin/Globulin Ratio 1.0 Assessment and Plan Impression Patient is a 52 year old male who presented w abd distension, pain, n/v, no BM x 8 days. Imaging studies consistent w colonic distension w L sided obstruction. CT showed rectosigmoid mass. He underwent colonic decompression w colon stent placement on 03/12, is passing stool since then but still having abd distension. Repeat KUB today showed stent at narrowed site of colonic stricture , persistent colon and cecum distension. Plans - Surgery following, appreciate recs - Keep NPO & IVF support; correct K - NGT to LIS. - IV Zosyn - Will follow along Attg add: I interviewed and examined pt, reviewed chart and labs. His abd remains markeldy distended, although KUB shows stent in place, with tight waist. Pt has no pain. He describes large liquid BM's this morning. Would cont NG suction. I am not sure why he has persistent abd distention, as stent appears well positioned and he is stooling. Follow abd exams - may consider repeat scope for decompression, although I am reluctant to do this given as I anticipate difficulty traversing stented lesion.
--- NOTE | 2018-03-13 12:34 | DIAGNOSTIC IMAGING REPORT ---
KUB CLINICAL HISTORY: NG Tube advanced - check placement tube position COMPARISON STUDY: 03/13/2018 9:25 AM FINDINGS: Nasogastric tube has been advanced somewhat and is now within the proximal gastric fundus. HISTORY: Be advanced several centimeters. The colonic pattern is unchanged. The sigmoid stent is unchanged. There are no secondary signs of free air. IMPRESSION: Mild interval advancement of the nasogastric tube to the gastric fundus. This should again be advanced several centimeters. Persistent colonic distention The above report was generated using voice recognition software. It may contain grammatical, syntax or spelling errors. Electronically signed by: Blue Cruz M.D. 03/13/2018 12:33 PM Dictated Date/Time: 03/13/2018 12:31 PM
[2018-03-13] MEDS ORDERED: MIDAZOLAM HCL 1 MG/ML 2ML VIAL ONE (13:49)
[2018-03-13] MEDS ORDERED: ONDANSETRON INJ 2 MG/ML 2 ML VIAL ONE (13:49)
[2018-03-13] MEDS ORDERED: DEXAMETHASONE SOD INJ 4 MG/ML VIAL ONE (13:49)
[2018-03-13] MEDS ORDERED: SUCCINYLCHOLINE CHLORIDE 20 MG/ML 10 ML VIAL IV ONE (13:49)
[2018-03-13] MEDS ORDERED: EpHEDrine SULFATE INJ 50 MG/ML AMP ONE (13:49)
[2018-03-13] MEDS ORDERED: PROPOFOL IV EMULSION 10 MG/ML 20 ML VIAL IV ONE (13:49)
[2018-03-13] MEDS ORDERED: NEOSTIGMINE METHYLSULFATE 5 MG/5 ML SYR ONE (13:49)
[2018-03-13] MEDS ORDERED: GLYCOPYRROLATE INJ 0.2 MG/ML VIAL ONE (13:49)
[2018-03-13] MEDS ORDERED: FENTANYL CITRATE INJ 50 MCG/1 ML 2 ML VIAL ONE (13:49)
[2018-03-13] MEDS ORDERED: LIDOCAINE HCL 2% 2 ML VIAL (20MG/ML) ONE (13:49)
[2018-03-13] MEDS ORDERED: PHENYLEPHRINE HCL INJ 10 MG/ML VIAL ONE (13:49)
[2018-03-13] MEDS ORDERED: MINERAL OIL 30 ML UDC ONE (13:55)
[2018-03-13] MEDS ORDERED: PROMETHAZINE HCL INJ 12.5 MG in SODIUM CHLORIDE 0.9% 50ML 50 ML IV PRN (15:15)
[2018-03-13] MEDS ORDERED: ONDANSETRON INJ 2 MG/ML 2 ML VIAL IV PRN (15:15)
[2018-03-13] MEDS ORDERED: ATROPINE SULFATE 0.1 MG/ML 5ML SYR IV PRN (15:15)
[2018-03-13] MEDS ORDERED: FENTANYL CITRATE INJ 50 MCG/1 ML 2 ML VIAL IV PRN (15:15)
--- NOTE | 2018-03-13 16:41 | DIAGNOSTIC IMAGING REPORT ---
KARRI CLINICAL HISTORY: COLONS COPY WITH STENT COMPARISON STUDY: 03/12/2018 FINDINGS: 2 intraoperative fluoroscopic spot images are provided for interpretation. 12 seconds of fluoroscopic time was utilized. An endoscope is seen passing through a rectosigmoid stent. There is narrowing of the midportion of the stent. IMPRESSION: Rectosigmoid stent which demonstrates midportion narrowing. Electronically signed by: German Michael M.D. 03/13/2018 4:39 PM Dictated Date/Time: 03/13/2018 4:37 PM
--- NOTE | 2018-03-13 16:54 | DIAGNOSTIC IMAGING REPORT ---
KUB CLINICAL HISTORY: Bowel obstruction status post colonic decompression COMPARISON STUDY: 03/13/2018 FINDINGS: A rectosigmoid stent is visualized. The cecum measures 14 cm. There is slight decrease in the gaseous distention of the colon. There is persistent waisting of the midportion of the stent. A nasogastric tube is visualized within the stomach. There are bilateral lower lobe pulmonary airspace opacities IMPRESSION: 1. Slight decrease in the gaseous distention of the colon. The cecum measures 14 cm 2. Bilateral lower lobe airspace opacities 3. Nasogastric tube within the stomach Electronically signed by: German Michael M.D. 03/13/2018 4:53 PM Dictated Date/Time: 03/13/2018 4:51 PM
--- NOTE | 2018-03-13 17:02 | Anesthesiology Progress Note ---
Anesthesia Post Op Note Date & Time Mar 13, 2018 at 17:02 Vital Signs Pain Intensity: 0 Vital Signs Past 12 Hours Date Time Temp Pulse Resp B/P (MAP) Pulse Ox O2 Delivery O2 Flow Rate FiO2 03/13/18 16:50 37.4 88 16 119/87 97 Nasal Cannula 3 03/13/18 16:40 88 16 133/89 94 Nasal Cannula 3 03/13/18 16:30 82 16 126/83 94 Oxymask 10 03/13/18 16:20 84 16 126/83 94 Oxymask 10 03/13/18 16:14 36.6 90 16 122/80 93 Oxymask 10 03/13/18 12:02 95 Nasal Cannula 3.0 03/13/18 11:29 36.9 78 18 128/80 (96) 96 Nasal Cannula 4.0 03/13/18 07:44 95 Nasal Cannula 3.0 03/13/18 07:28 36.8 73 18 133/85 (101) 95 Nasal Cannula 4.0 Notes Mental Status: alert / awake / arousable, participated in evaluation Pt Amnestic to Procedure: Yes Nausea / Vomiting: adequately controlled Pain: adequately controlled Airway Patency, RR, SpO2: stable & adequate BP & HR: stable & adequate Hydration State: stable & adequate Anesthetic Complications: no major complications apparent
[2018-03-14] MEDS: SODIUM CHLORIDE 0.9% 1000ML 1,000 ML IV SCH ×2 (00:09→07:43)
[2018-03-14 04:00] VITALS: BP 110/69; PULSE 68; TEMP 36.9; O2SAT 92
[2018-03-14 07:32] VITALS: BP 137/80; PULSE 64; TEMP 37.2; O2SAT 94
[2018-03-14 07:35] LABS: BASO % 0.2 %; BASO ABS # 0.01 K/uL (0-0.2); EOS % 0.2 %; EOS ABS # 0.01 K/uL (0-0.5); HEMATOCRIT 38.6 % (42-52); HEMOGLOBIN 13.1 g/dL (14.0-18.0); IG# 0.02 K/uL (0.00-0.02); LYMPH % 15.3 %; LYMPH ABS # 0.92 K/uL (1.2-3.4); MEAN CELL VOLUME 93.9 fL (80-100); MEAN CORPUSCULAR HEMOGLOBIN 31.9 pg (25-34); MEAN CORPUSCULAR HGB CONC 33.9 g/dl (32-36); MEAN PLATELET VOLUME 9.2 fL (7.4-10.4); MONO % 18.2 %; MONO ABS # 1.09 K/uL (0.11-0.59); NEUT % 65.8 %; NEUT ABS # 3.95 K/uL (1.4-6.5); PLATELET COUNT 290 K/uL (130-400); RED CELL DISTRIBUTION WIDTH CV 13.9 % (11.5-14.5); RED CELL DISTRIBUTION WIDTH SD 47.6 fL (36.4-46.3)
[2018-03-14 08:01] LABS: CALCIUM 7.9 mg/dl (8.5-10.1); CREATININE 0.91 mg/dl (0.60-1.40)
--- NOTE | 2018-03-14 08:33 | DIAGNOSTIC IMAGING REPORT ---
KUB HISTORY: re-eval colonic and cecum distension COMPARISON: KUB 03/13/2018. FINDINGS: Slight decompression of the distended gas-filled loops of large and small bowel compared to the prior study. Specifically, the cecum measures 13 cm in diameter, previously measuring 14 cm. The rectosigmoid stent remains unchanged. Tiny punctate foci of gas bubbles within the right mid abdomen have improved. This overlies the cecum. No definite pneumoperitoneum. Nasogastric tube terminates in the proximal stomach. Small bilateral pleural effusions. No renal calculi. No ureteral calculi. IMPRESSION: 1. Slight decompression of the gas-filled distended colon. The rectosigmoid stent remains unchanged in position. 2. A few tiny punctate foci of gas bubbles within the right mid abdomen overlying the cecum have also improved. This may represent the suspected trapped gas bubbles from the standard cecum. However, small foci of pneumatosis cannot be excluded. No evidence for pneumoperitoneum and this time. This bears watching future examinations. 3. Nasogastric tube terminates in the proximal stomach. Electronically signed by: Tavo Haile M.D. 03/14/2018 8:31 AM Dictated Date/Time: 03/14/2018 8:26 AM
[2018-03-14] MEDS: POTASSIUM CHLR 10 MEQ / WTR 100 ML IV SCH ×4 (09:06→13:03)
--- NOTE | 2018-03-14 09:47 | GI REPORT ---
Patient Name: Rolando Andres Procedure Date: 03/13/2018 2:47 PM Date of : 1965 Admit Type: Inpatient Age: 52 Gender: Male Attending MD: Perez Dang MD Procedure: Colonoscopy Providers: Perez Dang MD Referring MD: Blue Jauregui MD Indications: Therapeutic procedure; for relief of distal colonic obstruction; the patient has marked cecal distention despite stent that appears to be in adequate position. Procedure was done to try to check stent position, dilate the stent, and decompress the proximal colon. Medicines: See the Anesthesia note for documentation of the administered medications Complications: No immediate complications. Estimated Blood Loss: Estimated blood loss: none. Procedure: Pre-Anesthesia Assessment: - ASA Grade Assessment: III - A patient with severe systemic disease. After I obtained informed consent, the scope was passed under direct vision. Throughout the procedure, the patient's blood pressure, pulse, and oxygen saturations were monitored continuously. The scope was introduced through the anus and advanced to the transverse colon. The patient tolerated the procedure well. Findings: Hemorrhoids were found on perianal exam. The previously placed stent was in place and appeared to bridge the stricture. The adult upper endoscope could not be passed beyond the waist of the stent. A TTS dilating balloon was passed under direct visualizatio and positioned over the waist of the stent. The balloon was then inflated first to 10, then 11, and then 12 mm and held for 1 minute with each inflation. The balloon was then deflated and then removed; however, the scope could still not be passed through the stent. I then switched to the ultra-thin scope. I was able to pass the ultra-thin scope in to what appeared to be the transverse colon. Suction and irrigation were applied, with recovery of a large amount of stool.; the patient's abdomen appeared considerably softer although remained distended. Impression: -- Stent in place. Partial decompression achieved. Recommendation: - Discharge patient to floor. Continue to follow. Carter Jiménez MD 03/13/2018 4:04:10 PM This report has been signed electronically. Note Initiated On: 03/13/2018 2:47 PM Number of Addenda: 0 I attest to the content of the Intraoperative Record and orders documented therein, exceptions below {[id number]}
[2018-03-14] MEDS ORDERED: PANTOprazole INJ 40 MG in SYRINGE 0 ML IV SCH (11:00)
[2018-03-14 11:36] VITALS: BP 134/78; PULSE 64; TEMP 36.6; O2SAT 96
--- NOTE | 2018-03-14 11:53 | Surgery Progress Note ---
Surgery Progress Note Date of Service Mar 14, 2018. Subjective Post OP Day: HD # 2, POD # 2 s/p colonic stent placement and POD # 1 s/p colonic decompression + feeling well, + bowel movement, + flatus, No complaints, No nausea, No vomiting less bloated today no complaint of abdominal pain passing gas and liquid bowel movements last night and this morning Objective Vital Signs: Date Time Temp Pulse Resp B/P (MAP) Pulse Ox O2 Delivery O2 Flow Rate FiO2 03/14/18 11:36 36.6 64 18 134/78 (96) 96 Nasal Cannula 1.5 03/14/18 08:00 Nasal Cannula 2.0 03/14/18 07:32 37.2 64 18 137/80 (99) 94 Nasal Cannula 1.5 03/14/18 04:00 36.9 68 16 110/69 (83) 92 Room Air 03/14/18 04:00 Nasal Cannula 2.0 03/14/18 00:00 Nasal Cannula 2.0 03/13/18 23:50 37.2 78 18 130/82 (98) 92 Nasal Cannula 2.0 03/13/18 20:04 36.8 87 18 137/82 (100) 95 2.0 03/13/18 20:00 97 Nasal Cannula 2.0 03/13/18 16:50 37.4 88 16 119/87 97 Nasal Cannula 3 03/13/18 16:40 88 16 133/89 94 Nasal Cannula 3 03/13/18 16:30 82 16 126/83 94 Oxymask 10 03/13/18 16:20 84 16 126/83 94 Oxymask 10 03/13/18 16:14 36.6 90 16 122/80 93 Oxymask 10 03/13/18 16:09 95 Nasal Cannula 2.0 03/13/18 12:02 95 Nasal Cannula 3.0 Physical Exam: nasogastric drainage (thick clear, light brown output) General Appearance: WD/WN, no apparent distress Head: normocephalic, atraumatic Neck: trachea midline Respiratory/Chest: no respiratory distress, no accessory muscle use Cardiovascular: regular rate, rhythm, no murmur Abdomen: non tender (no peritonitis, rigidity, guarding, or rebound), soft, + distended (moderate distention but improved, softer on examination) Laboratory Results: Results Past 24 Hours Test 03/14/18 07:22 Range/Units White Blood Count 6.00 4.8-10.8 K/uL Red Blood Count 4.11 4.7-6.1 M/uL Hemoglobin 13.1 14.0-18.0 g/dL Hematocrit 38.6 42-52 % Mean Corpuscular Volume 93.9 80-100 fL Mean Corpuscular Hemoglobin 31.9 25-34 pg Mean Corpuscular Hemoglobin Concent 33.9 32-36 g/dl Platelet Count 290 130-400 K/uL Mean Platelet Volume 9.2 7.4-10.4 fL Neutrophils (%) (Auto) 65.8 % Lymphocytes (%) (Auto) 15.3 % Monocytes (%) (Auto) 18.2 % Eosinophils (%) (Auto) 0.2 % Basophils (%) (Auto) 0.2 % Neutrophils # (Auto) 3.95 1.4-6.5 K/uL Lymphocytes # (Auto) 0.92 1.2-3.4 K/uL Monocytes # (Auto) 1.09 0.11-0.59 K/uL Eosinophils # (Auto) 0.01 0-0.5 K/uL Basophils # (Auto) 0.01 0-0.2 K/uL RDW Standard Deviation 47.6 36.4-46.3 fL RDW Coefficient of Variation 13.9 11.5-14.5 % Immature Granulocyte % (Auto) 0.3 % Immature Granulocyte # (Auto) 0.02 0.00-0.02 K/uL Sodium Level 143 136-145 mmol/L Potassium Level 3.0 3.5-5.1 mmol/L Chloride Level 108 98-107 mmol/L Carbon Dioxide Level 27 21-32 mmol/L Anion Gap 7.0 3-11 mmol/L Blood Urea Nitrogen 15 7-18 mg/dl Creatinine 0.91 0.60-1.40 mg/dl Est Creatinine Clear Calc Drug Dose 102.6 ml/min Estimated GFR () 111.1 Estimated GFR (Non- 95.9 BUN/Creatinine Ratio 16.7 10-20 Random Glucose 84 70-99 mg/dl Calcium Level 7.9 8.5-10.1 mg/dl Assessment & Plan 52 year-old male presented to ED with complaint of inability to have a bowel movement for 8 days with completely obstructing rectosigmoid mass s/p colonoscopy with stent placement and colonoscopy with decompression yesterday. Mass at 15 cm. Biopsied , results pending. Colonic distention slightly improved but marginal, cecum measuring 13 cm on todays KUB. Left colon measuring 5 cm. Abdomen softer today and less distended. + bowel movements and flatus. No peritonitis. No leukocytosis. Hypokalemia, today 3.0 Plan: Dr. Jauregui has discussed patient with Dr. Stuart at [facility] in [place] in regards to possible transfer given the location of the colonic/rectal mass. Mass at 15 cm on colonoscopy however looks low on CT scan. Discussed with patient possible transfer for possible low anterior resection given location. Patient is agreeable to transfer if that is the best decision. Dr. Jauregui has discussed patient with Dr. Stuart who accepted patient for transfer. Replace K, 40 meq IV potassium Patient will be transferred to [facility] via [facility] Discontinue NGT This patient has a stent in place at present. He is moving his bowels and passing flatus. There is beginning to be decompression of the left transverse colon the cecum still remains at 13 cm. This lesion appears to be in the mid sacral region as demonstrated by site of the stent on KUB from today. This may be lower than initially thought. I have discussed this with Dr. Stuart at [facility] and he has accepted the patient in transfer.
--- NOTE | 2018-03-14 11:59 | Gastroenterology Progress Note ---
Progress Note Date of Service: Mar 14, 2018 Subjective Pt evaluation today including: conversation w/ patient, physical exam, chart review, lab review, review of studies, review of inpatient medication list Patient felt better NG tube still in place He is passing flatus and liquid stool S/p repeat decompression 03/13/18 Review of Systems Constitutional: No fever, No chills Respiratory: No cough, No sputum Cardiac: No chest pain Abdomen: + see HPI, No diarrhea Medications Current Inpatient Medications Medications (Trade) Dose Ordered Sig/Bryant Route Start Time Stop Time Status Last Admin Dose Admin Ioversol (Optiray 320) 125 ml UD PRN IV 03/12/18 16:45 03/16/18 16:44 Morphine Sulfate (MoRPHine SULFATE INJ) 4 mg Q1H PRN IV 03/12/18 19:00 03/26/18 18:59 Ondansetron HCl (Zofran Inj) 4 mg Q6H PRN IV 03/12/18 19:00 04/11/18 18:59 Sodium Chloride 1,000 ml @ 125 mls/hr Q8H IV 03/12/18 18:53 04/11/18 18:52 03/14/18 07:43 125 MLS/HR Pantoprazole Sodium 40 mg/ Syringe 10 ml @ 5 mls/min DAILY@11 IV 03/14/18 11:00 04/13/18 10:59 03/14/18 11:42 5 MLS/MIN Potassium Chloride 100 ml @ 100 mls/hr Q1H IV 03/14/18 09:00 03/14/18 12:59 03/14/18 11:42 100 MLS/HR Objective Vital Signs Date Time Temp Pulse Resp B/P (MAP) Pulse Ox O2 Delivery O2 Flow Rate FiO2 03/14/18 11:36 36.6 64 18 134/78 (96) 96 Nasal Cannula 1.5 03/14/18 08:00 Nasal Cannula 2.0 03/14/18 07:32 37.2 64 18 137/80 (99) 94 Nasal Cannula 1.5 03/14/18 04:00 36.9 68 16 110/69 (83) 92 Room Air 03/14/18 04:00 Nasal Cannula 2.0 03/14/18 00:00 Nasal Cannula 2.0 03/13/18 23:50 37.2 78 18 130/82 (98) 92 Nasal Cannula 2.0 03/13/18 20:04 36.8 87 18 137/82 (100) 95 2.0 03/13/18 20:00 97 Nasal Cannula 2.0 03/13/18 16:50 37.4 88 16 119/87 97 Nasal Cannula 3 03/13/18 16:40 88 16 133/89 94 Nasal Cannula 3 03/13/18 16:30 82 16 126/83 94 Oxymask 10 03/13/18 16:20 84 16 126/83 94 Oxymask 10 03/13/18 16:14 36.6 90 16 122/80 93 Oxymask 10 03/13/18 16:09 95 Nasal Cannula 2.0 03/13/18 12:02 95 Nasal Cannula 3.0 Physical Exam General Appearance: WD/WN, no apparent distress ENT: + pertinent finding (NG tube in place) Respiratory/Chest: chest non-tender, lungs clear, normal breath sounds, no respiratory distress, no accessory muscle use Cardiovascular: regular rate, rhythm, no edema, no gallop, no JVD, no murmur Abdomen: non tender, + abnormal bowel sounds (hypoactive), + distended (Mild) Extremities: normal inspection Neurologic/Psych: alert, oriented x 3 Laboratory Results Last 24 Hours Test 03/14/18 07:22 White Blood Count 6.00 K/uL Red Blood Count 4.11 M/uL Hemoglobin 13.1 g/dL Hematocrit 38.6 % Mean Corpuscular Volume 93.9 fL Mean Corpuscular Hemoglobin 31.9 pg Mean Corpuscular Hemoglobin Concent 33.9 g/dl Platelet Count 290 K/uL Mean Platelet Volume 9.2 fL Neutrophils (%) (Auto) 65.8 % Lymphocytes (%) (Auto) 15.3 % Monocytes (%) (Auto) 18.2 % Eosinophils (%) (Auto) 0.2 % Basophils (%) (Auto) 0.2 % Neutrophils # (Auto) 3.95 K/uL Lymphocytes # (Auto) 0.92 K/uL Monocytes # (Auto) 1.09 K/uL Eosinophils # (Auto) 0.01 K/uL Basophils # (Auto) 0.01 K/uL RDW Standard Deviation 47.6 fL RDW Coefficient of Variation 13.9 % Immature Granulocyte % (Auto) 0.3 % Immature Granulocyte # (Auto) 0.02 K/uL Sodium Level 143 mmol/L Potassium Level 3.0 mmol/L Chloride Level 108 mmol/L Carbon Dioxide Level 27 mmol/L Anion Gap 7.0 mmol/L Blood Urea Nitrogen 15 mg/dl Creatinine 0.91 mg/dl Est Creatinine Clear Calc Drug Dose 102.6 ml/min Estimated GFR () 111.1 Estimated GFR (Non- 95.9 BUN/Creatinine Ratio 16.7 Random Glucose 84 mg/dl Calcium Level 7.9 mg/dl Assessment and Plan Impression Patient is a 52 year old male who presented w abd distension, pain, n/v, no BM x 8 days. Imaging studies consistent w colonic distension w L sided obstruction. CT showed rectosigmoid mass. He underwent colonic decompression w colon stent placement on 03/12, is passing stool since then but still having abd distension. Repeat KUB today showed stent at narrowed site of colonic stricture , persistent colon and cecum distension. Worsening hypokalemia and hypomagnesemia. Repeat decompression done on 03/13. Abdominal exam with some improvement this am though persistently with dilated cecum on imaging. Plans - Surgery following, appreciate recs - Keep NPO & IVF support; correct K and Mg - NGT to LIS. - IV Zosyn - Will follow along - Will consider adding promotility agent such as erythromycin to help with cecal dilatation Attg add: I interviewed and examined pt, reviewed chart and labs. Pt continues to pass flatus, denies abd pain. He appears comfortable, sitting in chair reading newspaper. His abd continues to be less distended and remains non tender. His KUB shows persistent cecal distention; stent again remains patent and in good place. A/P: I would advocated continued conservative management of his cecal distention ; he appears to be slowly improving, and I suspect that there may be some degree of chronicity to his colonic dilation. D/w surgery service, who is planning on transferring pt to tertiary care center.
--- NOTE | 2018-03-14 12:01 | Discharge Instructions ---
Discharge Instructions Date of Service Mar 14, 2018. Admission Reason for Admission: Bowel Obstruction Discharge Discharge Diagnosis / Problem: same, colonic mass completely obstruction stent placement and decompression Discharge Goals Goal(s): Therapeutic intervention Activity Recommendations Activity Limitations: as noted below Lifting Limitations: none Exercise/Sports Limitations: none May Resume Sexual Activity: when tolerated Shower/Bathe: no limitations Driving or Machine Use: no limitations . Current Hospital Diet Patient's current hospital diet: Discharge Diet Recommended Diet: N/A Procedures Procedures Performed: colonoscopy and decompression Pending Studies Studies pending at discharge: yes List of pending studies: colon mass biopsies Medical Emergencies . Who to Call and When: Medical Emergencies: If at any time you feel your situation is an emergency, please call 911 immediately. . Non-Emergent Contact Non-Emergency issues call your: Surgeon . "Provider Documentation" section prepared by Tabatha Kathleen. . Cut Off Saw Tender Metal Recommendations Cut Off Saw Tender Metal Recommendations: YOU ARE BEING TRANSFERRED TO [facility] IN [place] FOR FURTHER EVALUATION AND TREATMENT. YOU WILL HAVE FURTHER DISCHARGE INSTRUCTIONS FROM THEIR INSTITUTION
--- NOTE | 2018-03-14 12:16 | Discharge Summary ---
Discharge Summary Dates Admission Date / Time: Mar 12, 2018 at 18:58 Discharge Date: Mar 14, 2018 Dispostion / Condition Discharge Disposition: Acute care facility Condition at Discharge: Good Principal Diagnosis (1) Colonic mass (2) Bowel obstruction Problem List (1) No significant past medical history Consultations / Procedures Consultations: Gastroenterology Procedures: Colonoscopy with stent and decompression on 03/12/2018 Colonoscopy with decompression on 03/13/2018 Vaccinations: None Pending Studies / Follow-Up Colon mass biopsy Medication Reconciliation Continued Medications: Methotrexate (Methotrexate) 2.5 Mg Tab 15 MG PO WK Admission HPI Per the Admitting provider: This is a 52-year-old male who presented to the emergency room with a complaint of not having had a bowel movement for about 8 days. He had some lower abdominal discomfort that began about 2 days ago. He had some nausea and vomiting over that same period of time but no hematemesis. The vomiting was mostly for dry heaves and that he was not able to keep anything but small bits of water down. He has never had an issue like this before. Prior to 8 days ago his bowels are moving regularly with formed stool. There is no decrease in the caliber. He denied melena and hematochezia. He has never had a colonoscopy. There is no family history of colon cancer. He has not had any weight loss. He underwent a CT scan 2 days ago that was felt to demonstrate a large amount of formed stool in the rectum and distal sigmoid colon. He underwent enemas for evacuation but that still did not result in passing flatus or a bowel movement. He underwent a CT scan today that demonstrated a narrowing near the rectosigmoid junction beginning at the sacral prominence and extending down through the sacral hollow. There were some enlarged lymph nodes as well. Admission Exam Per the Admitting provider: General Appearance: WD/WN Head: normocephalic Neck: supple, no adenopathy Respiratory/Chest: chest non-tender, lungs clear Cardiovascular: regular rate, rhythm Abdomen/GI: + tenderness (mild throughout), + abnormal bowel sounds (normal pitch but decreased), + distended Back: normal inspection, no CVA tenderness Skin: normal color Lymphatic: no adenopathy Hospital Course (1) Colonic mass Patient was admitted to the medical floor from the emergency room . Underwent colonoscopy with stent placement on 03/12/2018. Colonoscopy showed a completely obstructing circumferential mass in the sigmoid colon and biopsies were taken. Mass at 15 cm. Patient was transferred to telemetry floor for close observation. Placed NPO, NGT to LIS, IV pain medication and IV Zofran prn pain and nausea respectively, IV antibiotics, IV Fluids, and activity as tolerated. Patient had repeat KUB in the morning of 03/13/2018 which showed persistent colonic distention with cecum now measuring 14 cm. Patient underwent further colonoscopy with decompression. Has been having liquids bowel movements and passing flatus. NGT to clear to light brown output. 300 cc in last shift. No significant abdominal pain. On examination today (03/14/18) patient's abdomen was less distended but still moderate with no peritonitis, rigidity, guarding, or rebound. Potassium low at 3.0. Given persistent colonic distention and location of the colonic mass, Dr. Jauregui felt transfer to [facility] for further evaluation by colorectal surgeon warranted as patient may require low anterior resection. Patient was agreeable to transfer. Patient transfer to [facility] via ALS. NGT will be discontinued prior. Keep patient NPO. (2) Bowel obstruction Please see above (3) Hypokalemia Patient treated with 20 meq of Iv Potassium on 03/13/18 and 40 Meq of IV potassium on 03/14/2018 Discharge Instructions Patient will have discharge instruction from [facility] Copies To Primary Care Provider: Von Abbott M.D.. Problem Qualifiers (1) Bowel obstruction: Intestinal obstruction type: other intestinal obstruction Intestinal obstruction extent: complete Qualified Codes: K56.691 - Other complete intestinal obstruction
[2018-03-14 13:33] VITALS: BP 134/78; PULSE 64; TEMP 36.6; O2SAT 96
[2018-03-14 15:36] VITALS: BP 144/81; PULSE 66; TEMP 36.6; O2SAT 95
--- NOTE | 2018-03-17 16:36 | EDITING REQUIRED CODING QUERY ---
PATHOLOGY To promote full compliance with coding requirements relating to patient care, physician participation is requested in all cases of limnology teacher uncertainty. Please assist us with the question(s) below: Please review the Pathology report and please document any relevant diagnosis(es) below. Sigmoid colon biopsied on 03/12 via colonoscopy. Please review Path report and provide a diagnosis. Thank you! KATHERINE Villarreal [facility] Diagnosis(es): Adenocarcinoma of the colon
== END 2018-03-14 16:24 | disposition short-term general hospital (02) | DRG 375 ==
LOC: C.EDB 14:27 → C.MSN 18:58 → EDBEDREQSVC 19:07 → ENRESERV 19:12 → C.MED 23:36
PROVIDERS: ADMIT Surgery; ATTEND Surgery
PROC: 0D7E8DZ Dilation of Large Intestine with Intraluminal Device, Via Natural or Artificial Opening Endoscopic (ICD-10-PCS; principal; 2018-03-12 21:00)
PROC: 0DBN8ZX Excision of Sigmoid Colon, Via Natural or Artificial Opening Endoscopic, Diagnostic (ICD-10-PCS; principal; 2018-03-12 21:00)
PROC: 0D7E8DZ Dilation of Large Intestine with Intraluminal Device, Via Natural or Artificial Opening Endoscopic (ICD-10-PCS; 2018-03-13)
DX: C18.7 Malignant neoplasm of sigmoid colon (principal); K56.691 Other complete intestinal obstruction; E83.42 Hypomagnesemia; E87.6 Hypokalemia; M06.9 Rheumatoid arthritis, unspecified

== ENCOUNTER → 2018-03-29 | Day surgery (SDC) | payer OTHER ==
[2018-03-28 15:37] VITALS: Ht 177.8 cm; Wt 79.5 kg
[~2018-03-29] VITALS: Ht 177.8 cm; Wt 79.5 kg
[~2018-03-29] MED LIST: LIDOCAINE HCL 2% 2 ML VIAL (20MG/ML) ONE; METH2.5T PO; PROPOFOL IV EMULSION 10 MG/ML 20 ML VIAL ONE; SODIUM CHLORIDE 0.9% 500ML 500 ML IV ONE
--- NOTE | 2018-03-29 11:53 | Endo History and Physical ---
History & Physical Date of Service: March 29, 2018. Chief Complaint: Colorectal Mass Referring Physician: Von Abbott History of Present Illness CRC with recent stent placed Past Surgical History Hx Cardiac Surgery: No Hx Internal Defibrillator: No Hx Pacemaker: No Hx Abdominal Surgery: No Hx of Implantable Prosthesis: No Hx Post-Op Nausea and Vomiting: No Hx Cancer Surgery: No Hx Thoracic Surgery: No Hx Orthopedic: Yes (arthroscopy right knee) Hx Urinary Tract Surgery: No Family History None Social History Smoking Status: Never Smoker Hx Substance Use: No Hx Alcohol Use: Yes (some) Allergies Coded Allergies: No Known Allergies (Unverified , 03/29/18) Current Medications Reported Home Medications Medications Dose Route/Sig Max Daily Dose Days Date Category Methotrexate 2.5 Mg Tab 15 Mg PO WK 03/12/18 Reported Vital Signs Weight (Kilograms): 79.55 Height (Feet): 5 Height (Inches): 10 Date Time Temp Pulse Resp B/P (MAP) Pulse Ox O2 Delivery O2 Flow Rate FiO2 03/29/18 11:09 36.8 70 18 113/79 (90) 97 Room Air Physical Exam General Appearance: WD/WN, no apparent distress Respiratory/Chest: Auscultation: breath sounds normal Cardiovascular: Heart Auscultation: RRR Abdomen: Bowel Sounds: normal Inspection & Palpation: soft, non-distended, no tenderness, guarding & rebound Assessment and Plan colonoscopy; for surgery on Monday
--- NOTE | 2018-03-29 13:02 | Discharge Instructions ---
Endoscopy Patient Instructions Date / Procedure(s) Performed March 29, 2018. Colonoscopy Allergy Information Coded Allergies: No Known Allergies (Unverified , 03/29/18) Discharge Date / Findings March 29, 2018. colon polyp removed colon mass traversed with stent Medication Instructions Restart Stopped Medication(s): Reported Home Medications Medications Dose Route/Sig Max Daily Dose Days Date Category Methotrexate 2.5 Mg Tab 15 Mg PO WK 03/12/18 Reported Reported Home Medications Medications Dose Route/Sig Max Daily Dose Days Date Category Methotrexate 2.5 Mg Tab 15 Mg PO WK 03/12/18 Reported Provider Instructions Activity Restrictions - No exercising or heavy lifting for 24 hours. - Do not drink alcohol the day of the procedure. - Do not drive a car or operate machinery until the day after the procedure. - Do not make any important decisions or sign important papers in 24 hours after the procedure. Following Day: - Return to full activity which may include returning to work/school. Diet Start your diet with liquids and light foods (jello, soup, juice, toast). Then eat your usual diet if not nauseated. Treatment For Common After Affects For mild abdominal pain, bloating, or excessive gas: - Rest - Eat lightly - Lie on right side Follow-Up Information Follow-up with Von Abbott as scheduled Anesthesia Information What You Should Know You have had a procedure that required some medicine to reduce anxiety and discomfort. This treatment is called moderate sedation. After receiving the treatment, you may be sleepy, but you will be able to breathe on your own. The effects of the treatment may last for several hours. Follow these instructions along with Activity/Diet recommendations noted above: * Do NOT do anything where dizziness or clumsiness would be dangerous. * Rest quietly at home today, then you can be up and about tomorrow. * Have a responsible person stay with you the rest of today. * You may have had an I.V. today. If so, you may take the dressing off later today. Recommendations Call your doctor if: * Trouble breathing * Continuous vomiting for more than 24 hours * Temperature above 101 degrees * Severe abdominal pain or bloating * Pain not relieved by pain medicine ordered * There is increased drainage or redness from any incision * A large amount of rectal bleeding greater than 2-3 tablespoons. (If you had a polyp/s removed or have hemorrhoids, a small amount of blood - from the rectum is to be expected.) * You have any unanswered questions or concerns. IN THE EVENT OF A SERIOUS EMERGENCY, GO TO THE NEAREST EMERGENCY ROOM Your discharge instructions were prepared by provider Stan Araujo. Patient Instructions Signature Page Rolando Andres Patient (or Guardian) Signature/Date: I have read and understand the instructions given to me by my caregivers. Caregiver/RN/Doctor Signature/Date: The above-named patient and/or guardian has received patient instructions on this date. + Original Patient Signature Page (only) stays with chart. Please make copy for patient.
--- NOTE | 2018-03-29 13:23 | GI REPORT ---
Patient Name: Rolando Andres Procedure Date: 03/29/2018 12:23 PM Date of : 1965 Admit Type: Outpatient Age: 52 Gender: Male Attending MD: Stan Araujo MD Procedure: Colonoscopy Providers: Stan Araujo MD Referring MD: Saritha Potts Indications: Personal history of malignant neoplasm of the colon Medicines: General Anesthesia Complications: No immediate complications. Estimated blood loss: None. Estimated Blood Loss: Estimated blood loss: none. Procedure: Pre-Anesthesia Assessment: - Prior to the procedure, a History and Physical was performed, and patient medications and allergies were reviewed. The patient's tolerance of previous anesthesia was also reviewed. The risks and benefits of the procedure and the sedation options and risks were discussed with the patient. All questions were answered, and informed consent was obtained. Prior Anticoagulants: The patient has taken no previous anticoagulant or antiplatelet agents. ASA Grade Assessment: II - A patient with mild systemic disease. After reviewing the risks and benefits, the patient was deemed in satisfactory condition to undergo the procedure. After I obtained informed consent, the scope was passed under direct vision. Throughout the procedure, the patient's blood pressure, pulse, and oxygen saturations were monitored continuously. The scope was introduced through the anus and advanced to the terminal ileum, with identification of the appendiceal orifice and IC valve. The colonoscopy was performed without difficulty. The patient tolerated the procedure well. The quality of the bowel preparation was fair. Findings: The perianal and digital rectal examinations were normal. Pertinent negatives include normal sphincter tone, no palpable rectal lesions and no anal lesion or abnormality was detected. A 10 mm polyp was found at 10 cm proximal to the anus. The polyp was sessile. The polyp was removed with a hot snare. Resection and retrieval were complete. Estimated blood loss: none. Verification of patient identification for the specimen was done by the physician and supply chain technician using the patient's name and medical record number. A Wallstent was found from 15 to 25 cm proximal to the anus. An infiltrative and ulcerated non-obstructing large mass was found from 18 to 23 cm proximal to the anus. The mass was circumferential. The mass measured five cm in length. The terminal ileum appeared normal. The exam was otherwise normal throughout the examined colon. No additional abnormalities were found on retroflexion. Impression: - Preparation of the colon was fair. - One 10 mm polyp at 10 cm proximal to the anus, removed with a hot snare. Resected and retrieved. - Stent in the colon. - Malignant tumor from 18 to 23 cm proximal to the anus. - The examined portion of the ileum was normal. Recommendation: - Discharge patient to home (ambulatory). - Resume regular diet. - Continue present medications. - Repeat colonoscopy in 1 year for surveillance. - Await pathology results. - Return to referring physician as previously scheduled. - For colon resection on Monday with Dr Potts at [facility]. I have contacted pathology at [facility] to expedite path for tomorrow. the polyp site was approximately 5 cm below the distal extent of the stent. MD Stan Sarah MD 03/29/2018 1:22:50 PM This report has been signed electronically. Note Initiated On: 03/29/2018 12:23 PM Number of Addenda: 0 I attest to the content of the Intraoperative Record and orders documented therein, exceptions below {[id number]}
[2018-03-29 13:25] VITALS: BP 124/80; PULSE 65; O2SAT 98
--- NOTE | 2018-03-29 13:27 | Anesthesiology Progress Note ---
Anesthesia Post Op Note Date & Time March 29, 2018 at 13:27 Vital Signs Pain Intensity: 0 Vital Signs Past 12 Hours Date Time Temp Pulse Resp B/P (MAP) Pulse Ox O2 Delivery O2 Flow Rate FiO2 03/29/18 13:10 65 18 110/73 (85) 96 Room Air 03/29/18 12:54 36.7 88 16 106/68 (81) 96 Room Air 03/29/18 11:09 36.8 70 18 113/79 (90) 97 Room Air Notes Mental Status: alert / awake / arousable, participated in evaluation Pt Amnestic to Procedure: Yes Nausea / Vomiting: adequately controlled Pain: adequately controlled Airway Patency, RR, SpO2: stable & adequate BP & HR: stable & adequate Hydration State: stable & adequate Anesthetic Complications: no major complications apparent
== END | disposition home or self-care (01) ==
LOC: C.GI 10:41
PROVIDERS: ATTEND Internal Medicine Gastroenterology
DX: K62.9 Disease of anus and rectum, unspecified (principal); K62.0 Anal polyp; M06.9 Rheumatoid arthritis, unspecified